=== PATIENT | male | born 1965 | race Caucasian/White ===

== ENCOUNTER 2018-10-06 14:32 | Inpatient (IN) | payer OTHER ==
[~2018-10-06] VITALS: Ht 175.3 cm; Wt 53.2 kg
--- OUTSIDE RECORDS SUMMARY | 2018-10-06 14:35 | XMS REPORT | Clinical Summary ---
Author Author NARCISO [facility] Organization [facility] Address Unknown Phone Unavailable Care Team Providers Care Branch Account Manager Name Role Phone Elvis Roman PCP Allergies Not on File Medications Not on file Active Problems Not on file Social History Date Tobacco Use Types Packs/Day Years Used Never Assessed Sex Assigned at Date Recorded Not on file Industry Job Start Date Occupation Not on file Not on file Not on file Travel End Travel History Travel Start No recent travel history available. Last Filed Vital Signs Not on file Plan of Treatment Not on file Results Not on fileafter 10/05/2017 Insurance Payer Benefit Subscriber ID Type Phone Address Plan / Group [facility] H[facility]/POS CARE POS SELECT CHOICE [place] ([place]) [place] [phone]
--- OUTSIDE RECORDS SUMMARY | 2018-10-06 14:35 | XMS REPORT ---
Author Author [facility] Address Unknown Phone Unavailable Care Team Providers Care Welt Maker Name Role Phone Unavailable Unavailable Problems This patient has no known problems. Allergies, Adverse Reactions, Alerts This patient has no known allergies or adverse reactions. Medications This patient has no known medications. Encounters Start Date/Time End Date/Time Encounter Type Admission Type Attending [facility] Care Department Encounter ID 2018-10-03 17:46:00 Outpatient [facility] [id number] 2018-09-16 11:03:00 2018-09-16 09:14:00 Inpatient E [facility] [id number] 2018-07-09 01:31:00 2018-07-08 22:59:00 Inpatient E [facility] [id number]
[2018-10-06] MEDS ORDERED: SODIUM CHLORIDE 0.9% 1000ML 1,000 ML IV ONE ×2 (15:05→18:45)
[2018-10-06] MEDS ORDERED: SODIUM CHLORIDE 0.9% 1000ML 1,000 ML ONE (15:08)
--- NOTE | 2018-10-06 15:08 | NUR ---
RADIOLOGY AT BEDSIDE FOR CXR AT THIS TIME.
--- NOTE | 2018-10-06 15:31 | Diagnostic Imaging Report ---
EXAMINATION: CHEST SINGLE (PORTABLE) INDICATION: Shortness of breath COMPARISON: None FINDINGS: TUBES and LINES: Tracheostomy tube with tip terminating 2.9 cm above the wilber. LUNGS: The lung volumes are very low. There is airspace opacity in the right lower lung zone silhouetting the right hemidiaphragm and right heart border. Subsegmental atelectasis at the left lung base. PLEURA: Likely small bilateral pleural effusion right greater than left HEART AND MEDIASTINUM: The cardiomediastinal silhouette is difficult to evaluate given low lung volumes. BONES AND SOFT TISSUES: No acute fracture or dislocation. UPPER ABDOMEN: No free air under the diaphragm. Residual oral contrast material in descending colon. IMPRESSION: Low lung volumes. Patchy right lung airspace opacity, likely aspiration or pneumonia in the proper clinical setting. Likely small bilateral pleural effusions. RECOMMENDATIONS: Follow-up PA and lateral chest radiographs in 4 weeks to assess for resolution. Signed by: Kristopher Ag MD on 10/06/2018 3:27 PM
[2018-10-06 15:37] LABS: BILIRUBIN,URINE NEGATIVE (NEGATIVE); CLARITY,URINE SL CLOUDY (CLEAR); COLOR,URINE YELLOW (YELLOW); KETONES,URINE NEGATIVE (NEGATIVE); LEUKOCYTE ESTERASE ,URINE NEGATIVE (NEGATIVE); NITRITE,URINE NEGATIVE (NEGATIVE); PROTEIN,URINE DIPSTICK 2+ (NEGATIVE); URINE UROBILINOGEN 0.2 mg/dL (0.2 - 1)
--- NOTE | 2018-10-06 15:40 | NUR ---
PT BROUGHT TO ROOM; DR. OSORIO AT BEDSIDE UPDATING PT AND WITH CURRENT PLAN OF CARE; DR. OSORIO INFORMED OF LOW B/P 71/54, NO FURTHER ORDERS RECEIVED.
[2018-10-06 15:51] LABS: AMORPHOUS SEDIMENT,URINE MODERATE (FEW); BACTERIA,URINE MANY /HPF; MUCUS,URINE MODERATE (RARE); WBC,URINE (MAN) 0-5 /HPF (0-5)
--- NOTE | 2018-10-06 16:00 | NUR ---
RT AT BEDSIDE FOR ABG DRAW AT THIS TIME.
[2018-10-06 16:02] LABS: LYMPHOCYTES % 3.1 % (18.0-39.1); MEAN CORPUSCULAR HEMOGLOBIN 29.3 pg (28-32); MEAN CORPUSCULAR HGB CONC 28.6 g/dL (31-35); MEAN CORPUSCULAR VOLUME 102.6 fL (81-99); MONOCYTES # (AUTO) 3.6 (0.2-0.8); MONOCYTES % 11.4 % (4.4-11.3); NEUTROPHILS # (AUTO) 26.2 (2.1-6.9); NEUTROPHILS % 84.4 % (38.7-80.0); PLATELET COUNT 352 x10e3/uL (140-360); RED BLOOD COUNT 1.16 x10e6/uL (4.3-5.7); RED CELL DISTRIBUTION WIDTH 15.9 % (11.7-14.4)
[2018-10-06 16:04] LABS: HEMATOCRIT 11.9 % (38.2-49.6); HEMOGLOBIN 3.4 g/dL (14.0-18.0)
--- NOTE | 2018-10-06 16:05 | NUR ---
RECEIVED CALL FROM LAB TO REPORT CRITICAL H/H OF 3.4 AND 11.9; INFORMED DR. OSORIO.
[2018-10-06 16:10] LABS: INR 1.21; PROTHROMBIN TIME 15.9 seconds (11.9-14.5)
--- NOTE | 2018-10-06 16:10 | NUR ---
PT NOTED TO BE BRADYCARDIC, CODE BLUE CALLED AT THIS TIME; DR. OSORIO AT BEDSIDE. RECEIVED VERBAL ORDERS FROM DR. OSORIO AT THIS TIME FOR: ATROPINE 1 MG IVP @1610 EPI 1 MG IVP @1612 O NEGATIVE BLOOD INITIATED @ 500 ML/HR @1616 TO LT AC 20G PIV X-RAY CALLED FOR POST LINE PLACEMENT X-RAY @1618 DOPAMINE @ 5 MCG/KG @ 8.4ML/HR @1619 TO RT AC 22G PIV BLOOD RETURN NOTED ON ALL THREE LINES FROM CENTRAL LINE @1620 SECOND UNIT OF O NEGATIVE BLOOD STARTED ON CENTRAL LINE W/ PRESSURE BAG @1623 FIRST UNIT OF O NEGATIVE BLOOD MOVED TO CENTRAL LINE W/ PRESSURE BAG @1625 DOPAMINE STOPPED @1636 LEVOPHED STARTED AT 5 MCG/MIN @ 9.4 ML/HR @1637
[2018-10-06 16:11] LABS: PARTIAL THROMBOPLASTIN TIME 36.4 seconds (23.8-35.5)
[2018-10-06] MEDS ORDERED: SODIUM CHLORIDE 0.9% 250ML 250 ML IV ONE ×2 (16:15→17:00)
--- NOTE | 2018-10-06 16:16 | NUR ---
CENTRAL LINE WAS PLACED BY DR. OSORIO, CRITICAL BLOOD TRANSFUSION INITIATED; PT VERBALIZED UNDERSTANDING OF INTERVENTIONS AND AGREES WITH CURRENT PLAN OF CARE.
[2018-10-06 16:22] LABS: ALANINE AMINOTRANSFERASE 17 IU/L (0-55); ALBUMIN 2.2 g/dL (3.5-5.0); ALBUMIN/GLOBULIN RATIO 0.8 (0.8-2.0); ALKALINE PHOSPHATASE 100 IU/L (40-150); ANION GAP 17.6 mmol/L (8-16); BLOOD UREA NITROGEN 53 mg/dL (7-26); BUN/CREATININE RATIO 83 (6-25); CARBON DIOXIDE 24 mmol/L (22-29); CHLORIDE 103 mmol/L (98-107); CREATINE KINASE 9 IU/L (30-200); CREATININE, SERUM 0.64 mg/dL (0.72-1.25); EST GLOMERULAR FILTRATION RATE > 60 ML/MIN (60-); GLUCOSE 147 mg/dL (74-118); MAGNESIUM 1.9 MG/DL (1.3-2.1); POTASSIUM 4.6 mmol/L (3.5-5.1); SODIUM 140 mmol/L (136-145)
[2018-10-06] MEDS ORDERED: VANCOMYCIN 1GM/NS 250 ML 250 ML ONE (16:31)
[2018-10-06] MEDS ORDERED: PIPER-TAZ 3.375 GM 50 ML ONE (16:32)
[2018-10-06] MEDS ORDERED: NOREPINEPHRINE 8 MG/D5W 250 ML 250 ML ONE (16:35)
[2018-10-06] MEDS ORDERED: NOREPINEPHRINE INJ 4MG/4ML 8 MG in DEXTROSE 5% 250ML 250 ML IV STA (16:37)
--- NOTE | 2018-10-06 16:40 | NUR ---
RADIOLOGY AT BEDSIDE FOR POST LINE PLACEMENT CXR AT THIS TIME.
--- NOTE | 2018-10-06 17:05 | NUR ---
BEDSIDE VERIFICATION FOR BLOOD TRANSFUSION COMPLETED AT THIS TIME, PT HAS A TOTAL OF 6 UNITS TO GIVE. THIS IS HIS THIRD UNIT, FIRST TWO UNITS GIVEN DURING CODE CRITICAL STATUS PER VERBAL ORDERS WITH DR. OSORIO AT BEDSIDE. SEE FLOWSHEET ON CHART FOR ADMINISTRATION RECORD FOR THIS UNIT.
[2018-10-06 17:09] LABS: ANISOCYTOSIS SLIGHT; BAND NEUTROPHILS % (MANUAL) 2 %; HYPOCHROMASIA MODERATE; LYMPHOCYTES % (MANUAL) 7 % (19-48); METAMYELOCYTES % (MANUAL) 1 % (0-0); MONOCYTES % (MANUAL) 10 % (3.4-9.0); NEUTROPHILS % (MANUAL) 80 % (40-74); PLATELET ESTIMATE ADEQUATE; PLATELET MORPHOLOGY COMMENT FEW LARGE; RBC MORPHOLOGY COMMENT NORMAL; SMUDGE CELLS FEW
[2018-10-06] MEDS ORDERED: VANCOMYCIN 1GM/NS 250 ML 250 ML IV ONE (17:10)
[2018-10-06] MEDS: PIPER-TAZ 3.375 GM 50 ML IV SCH (17:10)
--- NOTE | 2018-10-06 17:28 | NUR ---
PT NOTED TO BE EXPERIENCING BRADYCARDIC EPISODE WITH LOW RESPONSIVENESS, DR. LOYD INFORMED; RECEIVED ORDERS TO START DOPAMINE, SEE eMAR. ADDITIONALLY RECEIVED ORDERS TO GIVE 1 AMP OF BICARB.
--- NOTE | 2018-10-06 17:32 | Diagnostic Imaging Report ---
EXAMINATION: CHEST SINGLE (PORTABLE) INDICATION: Line placement COMPARISON: Chest radiograph of earlier the same day FINDINGS: TUBES and LINES: There has been interval placement of a left subclavian central venous catheter with tip terminating near the level of the superior cavoatrial junction. Tracheostomy tube in place with tip approximately 2.8 cm above the level of the wilber. LUNGS: The lung volumes are low. There is unchanged airspace opacity in the right lower lung zone. PLEURA: Likely small bilateral pleural effusions right greater than left. HEART AND MEDIASTINUM: The cardiomediastinal silhouette is mildly enlarged. BONES AND SOFT TISSUES: No acute fracture or dislocation. UPPER ABDOMEN: No free air under the diaphragm. IMPRESSION: Interval placement of left subclavian central venous catheter with tip terminating near the superior cavoatrial junction. Unchanged right lower lung opacity, compatible with aspiration or pneumonia. RECOMMENDATIONS: Follow-up PA and lateral chest radiographs in 4 weeks to assess for resolution. Signed by: Kristopher Ag MD on 10/06/2018 5:29 PM
[2018-10-06] MEDS ORDERED: PIPER-TAZ 3.375 GM 50 ML IV SCH (18:00)
--- OUTSIDE RECORDS SUMMARY | 2018-10-06 18:07 | XMS REPORT | Clinical Summary ---
Author Author NARCISO [facility] Organization [facility] Address Unknown Phone Unavailable Care Team Providers Care Modeler Name Role Phone Elvis Roman PCP Allergies [...] ID Type Phone Address Plan / Group [facility] H[facility]/POS CARE POS [employer] CHO[employer] [place] ([place] [phone]
[2018-10-06] MEDS ORDERED: PROPOFOL IV EMULSION 10MG/ML 100 ML IV SCH (18:30)
--- NOTE | 2018-10-06 18:35 | NUR ---
DR. JI AT BEDSIDE FOR BRONCHOSCOPY; RT AT BEDSIDE; GIVING VERBAL ORDERS FOR THE FOLLWING: LITER BOLUS NS WIDE OPEN @1840 LEVOPHED TITRATED TO 15 MCG/MIN 28.1 ML/HR @184 5 CC/50 MG OF PROPOFOL IVP PRIOR TO PROCEDURE GIVEN @184 PROCEDURE START VIA TRACH @184 LEVOPHED TITRATED TO 20 MCG/MIN 37.5 ML/HR PROCEDURE END TIME @ 185
[2018-10-06] MEDS ORDERED: LIDOCAINE HCL 2% 30 ML TUBE ONE (18:36)
[2018-10-06] MEDS ORDERED: LIDOCAINE HCL 4% 50 ML BTL ONE (18:36)
[2018-10-06] MEDS: IPRATROPIUM BROMIDE 0.02% 2.5 ML NEB NEB SCH (19:00)
[2018-10-06] MEDS ORDERED: VASOPRESSIN 100 UNIT in DEXTROSE 5% 100ML 100 ML IV SCH (19:00)
[2018-10-06] MEDS: ALBUTEROL SULF 0.083% NEB SOLN 3 ML NEB NEB SCH ×2 (19:00→23:00)
--- NOTE | 2018-10-06 19:09 | NUR ---
RADIOLOGY AT BEDSIDE FOR POST PROCEDURE X-RAY AT THIS TIME.
--- NOTE | 2018-10-06 19:15 | NUR ---
FOURTH UNIT OF BLOOD INITIATED AT THIS TIME, BEDSIDE VERFICATION COMPLETED, SEE FLOWSHEET ON CHART.
--- NOTE | 2018-10-06 19:20 | NUR ---
DR. MAYERS AT BEDSIDE FOR PT EVAL AT THIS TIME.
[2018-10-06] MEDS: SODIUM CHLORIDE 0.9% 1000ML 1,000 ML IV SCH (19:22)
--- NOTE | 2018-10-06 19:25 | Operative Report ---
DATE OF PROCEDURE: 10/06/2018 SURGEON: Humaira Mantilla MD PREPROCEDURE DIAGNOSIS: Abnormal chest x-ray. POSTPROCEDURE DIAGNOSIS: Mucous plugging in the right lower lobe and purulent secretions. PROCEDURE PERFORMED: Bronchoscopy with BAL. PROCEDURE DETAIL: The bronchoscope was advanced through the tracheostomy. Evangelina was identified. Both lung was examined to the segmental level. The left lung has two small nodules. I was unable to do the biopsy because of the patient's hypoxia. Right lung has no endobronchial lesion. Mucus plug was suctioned from the right lower lobe. Complications none. Postprocedure chest x-ray is pending. MD PIOTR Moon/MODL /[id number]
--- NOTE | 2018-10-06 19:41 | Diagnostic Imaging Report ---
EXAMINATION: CHEST SINGLE (PORTABLE) INDICATION: ^post bronchsocopy COMPARISON: Chest x-ray 10/06/2018. FINDINGS: AP view TUBES and LINES: Tracheostomy tube in place. Left subclavian line with tip at low SVC. LUNGS: Lungs are well inflated. Right lung opacification with air bronchograms. Increasing and show opacities in the left lung. PLEURA: Moderate to large right pleural effusion with opacification of the right hemithorax. Small left pleural effusion with mildly indistinct left hemidiaphragm. HEART AND MEDIASTINUM: The cardiomediastinal silhouette is unremarkable. BONES AND SOFT TISSUES: No acute osseous lesion. Soft tissues are unremarkable. UPPER ABDOMEN: No free air under the diaphragm. Positive oral contrast within the splenic flexure of the colon. IMPRESSION: 1. Enlarging moderate to large right pleural effusion with likely small left pleural effusion. 2. Increasing diffuse consolidation/opacification of the right hemithorax with air bronchograms. Correlate for possible mucus plugging. Alternatively this could represent bronchoscopy fluid. Recommend close follow-up. 3. Slight increase in interstitial opacities in the left lung, possibly related to hypoinflation. Signed by: Dr. Darren Kraus M.D. on 10/06/2018 7:38 PM
[2018-10-06] MEDS ORDERED: NIFEDIPINE 10 MG CAP PO STA (19:53)
--- NOTE | 2018-10-06 19:57 | NUR ---
MELANIE SCHROEDER NOTIFIED OF CRITICAL LAB VALUE. LACTIC ACID 63.6.
[2018-10-06 20:00] VITALS: BP 106/69
[2018-10-06 20:09] LABS: FERRITIN 201.81 ng/mL (21.81-274.66)
--- NOTE | 2018-10-06 20:14 | Consultation ---
DATE OF CONSULTATION: 10/06/2018 Pulmonary Critical Care Consultation REASON FOR CONSULT: Pneumonia, ICU management, tracheostomy. HISTORY OF PRESENT ILLNESS: Mr. Sloan is a 52-year-old male, I was called for a stat consult to evaluate the patient for pneumonia and shortness of breath. The patient is a resident of [facility], has muscular dystrophy, chronic trach, has vent in home, dysphagia. 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 He came in because he was tachycardic. His hemoglobin was 3 in the emergency room. He had a chest x-ray done, which showed dense consolidation in the right lower lung and possible mucus plug as well. REVIEW OF SYSTEMS: Unable to elicit much. The patient is on trach care on mechanical ventilator. He is denying any chest pain, nausea, or vomiting. He has shortness of breath. He denies any abdominal pain. PAST MEDICAL HISTORY: Multiple sclerosis, muscular dystrophy is a question, chronic pain, anxiety, and dysphagia. FAMILY AND SOCIAL HISTORY: He does not smoke. Does not drink. PHYSICAL EXAMINATION: GENERAL: He is living in [facility]. VITAL SIGNS: Temperature 99.8, pulse of 142, blood pressure 80/53. HEENT: Head is atraumatic, normocephalic. The patient has some bleeding on the back side of the head. Has a tracheostomy, Shiley 6 with an inner cannula. CHEST: Crackles bilaterally. HEART: S1, S2 audible. ABDOMEN: Soft. EXTREMITIES: No pedal edema. NEUROLOGIC: Awake and alert, but cannot move his arms and legs. LABORATORY DATA: White count of 31,000, hemoglobin 3.4, platelets 352. Chemistry is within normal limits. Chest x-ray, possibility of pneumonia. ASSESSMENT/PLAN: Mr. Sloan is a 52-year-old male, has advanced multiple sclerosis versus muscular dystrophy is a question too. I am unsure of other diagnosis, however, the patient has chronic respiratory failure, has vent dependence, likely has pneumonia and acute blood loss anemia. Current problem, 1. Pneumonia aspiration likely bronchoscopy was performed. Mucus plug was suctioned from the right lower lobe. Continue the patient on IV antibiotics. The patient has been started on Zosyn and vancomycin nebulizer treatment. 2. Hemorrhagic shock versus septic shock or possibly a combination. Continue the patient on Levophed and IV fluids. Start blood transfusion, 2 units have been transfused, another 3 is cross-matched and will be transfused soon. 3. Multiple sclerosis versus muscular dystrophy. Recommend neurologic evaluation. Critical care time spent 50 minutes. MD PIOTR Moon/GEO /[id number]
--- NOTE | 2018-10-06 20:14 | History and Physical ---
HISTORY OF PRESENT ILLNESS: The patient essentially is a 52-year-old male, who had a past medical history positive for multiple sclerosis. He is chronically on the ventilator. He is from [facility] and the patient essentially came because of hypotension. He was found to have a very low blood count with a hemoglobin of 3.5. Apparently, he has been having some black stool for some time. He was found to have aspiration pneumonia. He was started on IV antibiotic and had a bronchoscopy done. He is going to get 6 units of blood transfusion with a consult with Dr. Anton Davis for Gastroenterology to find out the source of the anemia. Dr. Mantilla for Pulmonary because the patient is on the ventilator and Dr. James because of tachycardia. REVIEW OF SYSTEMS: The patient cannot give me too much information because he is on the ventilator. PAST MEDICAL HISTORY: Positive for multiple sclerosis, muscular dystrophy, chronic respiratory failure. ALLERGIES: HE IS ALLERGIC TO TYLENOL, HYDROCODONE IN THE PAST, LORAZEPAM IN THE PAST. SOCIAL HISTORY: [facility]. We do not know he smokes or drink. PHYSICAL EXAMINATION: HEART: Showed regular rhythm. Normal S1 and S2 sound. LUNGS: Clear bilaterally. ABDOMEN: Soft. He had a feeding tube in place. He had a tracheostomy. EXTREMITIES: Atrophy in upper and lower extremities. LABORATORY DATA: BMP; sodium 140, potassium 4.6, chloride 103, CO2 24, BUN 53, creatinine is 0.64, glucose 147. CBC; white blood count is elevated at 31,100, hemoglobin 3.4, hematocrit 11.9, platelet count 352,000. PT 15.9, INR 1.21, PTT 36.4. AST 21, ALT 17, total bilirubin 0.4, alkaline phosphatase 100. IMPRESSION: 1. Acute anemia. 2. Acute aspiration pneumonia. 3. Chronic respiratory failure. 4. Multiple sclerosis. 5. Supraventricular tachycardia, most likely secondary to anemia and sepsis. 6. Hypotension. 7. Acute renal failure. 8. Sepsis. PLAN OF TREATMENT: Continue ventilator support. He is going to get 6 units of blood transfusion. We are going to get stool guaiac, iron, TIBC, ferritin, vitamin B12, folic acid level. Consult Gastroenterology, Dr. Anton Davis and Dr. Mantilla for Pulmonary and Critical Care, Dr. James for Cardiology because of tachycardia. Continue with albuterol and Atrovent q.6 hours. Continue Zosyn q.6 hours. Continue vancomycin 1 g IV twice a day. Continue with IV fluids 110 normal saline at 125 mL an hour. We are going to repeat a CBC and BMP tomorrow. Dopamine and vasopressin as needed. The patient is critically, he is going to go to Intensive Care Unit. I discussed the case with Dr. Mantilla. TIME SPENT: 45 minutes. MD KAREN Purdy/GEO /[id number]
[2018-10-06] MEDS ORDERED: SODIUM CHLORIDE 0.9% 250ML 250 ML ONE (21:36)
[2018-10-06 22:00] VITALS: BP 100/74
[2018-10-06] MEDS ORDERED: METHYLPREDNISOLONE SOD SUCC 125 MG/2ML VIAL IV SCH (22:00)
[2018-10-06 22:30] VITALS: BP 88/65
[2018-10-06] MEDS: HYDROCORTISONE SOD SUCCINATE 100 MG VIAL IV SCH (22:43)
[2018-10-06] MEDS: PANTOPRAZOL 40MG/SOD CHL 0.9% 50 ML IV SCH (22:43)
[2018-10-06 23:00] VITALS: BP 93/73
[2018-10-06] MEDS ORDERED: SEROQUEL25 MG GT (23:21)
[2018-10-06] MEDS ORDERED: MIDODRINE HCL2.5 MG GT (23:21)
[2018-10-06] MEDS ORDERED: ACETAMINOPHEN325 M1 PO (23:21)
[2018-10-06] MEDS ORDERED: MONTELUKAST SOD10 MG GT (23:21)
[2018-10-06] MEDS ORDERED: METOPROLOL TART25 MG GT (23:21)
[2018-10-06] MEDS ORDERED: SENNA LAX8.6 MG GT (23:21)
[2018-10-06] MEDS ORDERED: ADVAIR 100-501 EACH IH (23:21)
[2018-10-06] MEDS ORDERED: GUAIFENESI100 MG/5 M GT (23:21)
[2018-10-06] MEDS ORDERED: ASPIRIN CHEW81 MG GT (23:45)
[2018-10-06] MEDS ORDERED: FAMOTIDINE20 MG GT (23:45)
[2018-10-06] MEDS ORDERED: ALBUTEROL0.63 MG/3 NEB ×2 (23:45)
[2018-10-06] MEDS ORDERED: DOCU LIQUI50 MG/5 ML GT (23:45)
[2018-10-06] MEDS ORDERED: BUSPIRONE HCL5 MG GT (23:45)
[2018-10-06 23:59] VITALS: BP 106/69
[2018-10-07] VITALS (26 sets, daily range): BP systolic 10–117; BP diastolic 26–89
[2018-10-07] MEDS ORDERED: HEMOCYTE PLUS1 EACH GT (00:20)
[2018-10-07] MEDS: PANTOPRAZOL 40MG/SOD CHL 0.9% 50 ML IV SCH ×5 (01:40→20:58)
[2018-10-07] MEDS: PIPER-TAZ 3.375 GM 50 ML IV SCH ×3 (01:42→12:00)
[2018-10-07] MEDS: IPRATROPIUM BROMIDE 0.02% 2.5 ML NEB NEB SCH ×5 (02:20→22:50)
[2018-10-07] MEDS: ALBUTEROL SULF 0.083% NEB SOLN 3 ML NEB NEB SCH ×3 (03:00→11:00)
[2018-10-07] MEDS: BUSPIRONE HCL 5 MG TAB PO SCH ×4 (03:00→21:00)
[2018-10-07] MEDS ORDERED: QUETIAPINE FUMARATE 25 MG TAB GT PRN (04:00)
--- NOTE | 2018-10-07 04:34 | NUR ---
Spoke with Dr. Sima Davis regarding pt intake, stated it is ok to use PEG tube for meds at this time. Will start tube feeds 10/07 @30 ml/hr with 200 ml flushes Q8 hrs. Goal of 85 ml/hr with 200 ml flushes Q8 hrs.
[2018-10-07] MEDS ORDERED: NOREPINEPHRINE 8 MG/D5W 250 ML 250 ML ONE ×3 (05:59→15:30)
[2018-10-07 06:23] LABS: BASOPHILS # (AUTO) 0.2 (0.0-0.1); BASOPHILS % 0.4 % (0.0-1.0); EOSINOPHILS # (AUTO) 0.1 (0.0-0.4); EOSINOPHILS % 0.2 % (0.0-6.0); HEMATOCRIT 40.8 % (38.2-49.6); HEMOGLOBIN 13.1 g/dL (14.0-18.0); LYMPHOCYTES # (AUTO) 0.9 (1.0-3.2); LYMPHOCYTES % 1.9 % (18.0-39.1); MEAN CORPUSCULAR HEMOGLOBIN 29.9 pg (28-32); MEAN CORPUSCULAR HGB CONC 32.1 g/dL (31-35); MEAN CORPUSCULAR VOLUME 93.2 fL (81-99); MONOCYTES # (AUTO) 3.3 (0.2-0.8); MONOCYTES % 7.2 % (4.4-11.3); NEUTROPHILS # (AUTO) 40.4 (2.1-6.9); NEUTROPHILS % 88.1 % (38.7-80.0); PLATELET COUNT 397 x10e3/uL (140-360); RED BLOOD COUNT 4.38 x10e6/uL (4.3-5.7); RED CELL DISTRIBUTION WIDTH 15.6 % (11.7-14.4)
[2018-10-07 06:38] LABS: BLOOD UREA NITROGEN 52 mg/dL (7-26); BUN/CREATININE RATIO 67 (6-25); CALCIUM 7.6 mg/dL (8.4-10.2); CARBON DIOXIDE 18 mmol/L (22-29); CHLORIDE 111 mmol/L (98-107); CREATININE, SERUM 0.78 mg/dL (0.72-1.25); EST GLOMERULAR FILTRATION RATE > 60 ML/MIN (60-); GLUCOSE 149 mg/dL (74-118); SODIUM 142 mmol/L (136-145)
[2018-10-07] MEDS ORDERED: SODIUM CHLORIDE 0.9% 1000ML 1,000 ML IV SCH (06:45)
[2018-10-07 06:51] LABS: ANION GAP 19.4 mmol/L (8-16)
[2018-10-07 06:54] LABS: POTASSIUM 6.4 mmol/L (3.5-5.1)
[2018-10-07] MEDS: VANCOMYCIN 1GM/NS 250 ML 250 ML IV SCH ×2 (07:17→17:19)
[2018-10-07] MEDS: HYDROCORTISONE SOD SUCCINATE 100 MG VIAL IV SCH ×2 (07:17→15:47)
[2018-10-07] MEDS: SODIUM CHLORIDE 0.9% 1000ML 1,000 ML IV SCH ×2 (07:17→09:52)
--- NOTE | 2018-10-07 07:19 | NUR ---
pt appears to be in respiratory distress, lethargic, pale, blue lips, diaphoretic, unable to get accurate O2 reading @ 0530. Last unit of blood has just finished. supervisor brake repair & primary RT has attempted ABG several times and been unsuccessful. supervisor brake repair directed to draw AM labs although it was too soon after last blood transfusion. RT was able to get O2 reading and pt appears more awake, color has returned to face and lips. Report has been given to Ulises, as well as the critical K+. Recommended labs be redrawn for more accuracy.
--- NOTE | 2018-10-07 07:39 | Diagnostic Imaging Report ---
EXAMINATION: CHEST SINGLE (PORTABLE) INDICATION: ^FOLLOW UP ^[id number] ^[id number] ^Y COMPARISON: 10/06/2018 FINDINGS: AP view TUBES and LINES: Stable endotracheal tube and left subclavian central line LUNGS: Low lung volumes. Bilateral airspace opacities are again seen. Improved aeration of the right lung. PLEURA: No pneumothorax. HEART AND MEDIASTINUM: The cardiac silhouette is obscured. Thickening of the right paratracheal stripe. BONES AND SOFT TISSUES: No acute osseous lesion. Soft tissues are unremarkable. UPPER ABDOMEN: No free air under the diaphragm. IMPRESSION: Again seen bilateral airspace opacities, representing moderate to severe edema and/or pneumonia. Decreased right lung opacification with improved aeration, representing decreased edema/effusion or pneumonia. Signed by: Dr. Julio C Zuleta MD on 10/07/2018 7:36 AM
[2018-10-07 08:13] LABS: BAND NEUTROPHILS % (MANUAL) 1 %; LYMPHOCYTES % (MANUAL) 3 % (19-48); MONOCYTES % (MANUAL) 10 % (3.4-9.0); NEUTROPHILS % (MANUAL) 86 % (40-74); NUCLEATED RED BLOOD CELLS 2; PLATELET ESTIMATE ADEQUATE
[2018-10-07 08:14] LABS: PLATELET MORPHOLOGY COMMENT NORMAL; RBC MORPHOLOGY COMMENT NORMAL
[2018-10-07] MEDS ORDERED: VANCOMYCIN HCL 1GM/NS 250 ML BAG IV SCH (09:00)
[2018-10-07 09:17] LABS: BASOPHILS # (AUTO) 0.2 (0.0-0.1); BASOPHILS % 0.3 % (0.0-1.0); EOSINOPHILS # (AUTO) 0.1 (0.0-0.4); EOSINOPHILS % 0.2 % (0.0-6.0); HEMATOCRIT 39.3 % (38.2-49.6); LYMPHOCYTES # (AUTO) 0.7 (1.0-3.2); LYMPHOCYTES % 1.4 % (18.0-39.1); MEAN CORPUSCULAR HEMOGLOBIN 30.7 pg (28-32); MEAN CORPUSCULAR HGB CONC 33.1 g/dL (31-35); MEAN CORPUSCULAR VOLUME 92.7 fL (81-99); MONOCYTES % 6.3 % (4.4-11.3); NEUTROPHILS # (AUTO) 42.6 (2.1-6.9); NEUTROPHILS % 89.2 % (38.7-80.0); PLATELET COUNT 381 x10e3/uL (140-360); RED BLOOD COUNT 4.24 x10e6/uL (4.3-5.7); RED CELL DISTRIBUTION WIDTH 15.8 % (11.7-14.4)
[2018-10-07 09:34] LABS: ANION GAP 18.4 mmol/L (8-16); BLOOD UREA NITROGEN 54 mg/dL (7-26); BUN/CREATININE RATIO 68 (6-25); CALCIUM 7.3 mg/dL (8.4-10.2); CARBON DIOXIDE 18 mmol/L (22-29); CHLORIDE 111 mmol/L (98-107); EST GLOMERULAR FILTRATION RATE > 60 ML/MIN (60-); GLUCOSE 169 mg/dL (74-118); POTASSIUM 5.4 mmol/L (3.5-5.1); SODIUM 142 mmol/L (136-145)
[2018-10-07 09:54] LABS: CREATINE KINASE MB 2.2 ng/mL (0-5.0)
[2018-10-07] MEDS: NOREPINEPHRINE 8 MG/D5W 250 ML 250 ML IV PRN ×2 (10:28→15:30)
[2018-10-07] MEDS ORDERED: FENTANYL CITRATE/PF 100MCG/2 ML INJ IV ONE (10:30)
[2018-10-07 10:36] LABS: BAND NEUTROPHILS % (MANUAL) 8 %; LYMPHOCYTES % (MANUAL) 2 % (19-48); MONOCYTES % (MANUAL) 1 % (3.4-9.0); NEUTROPHILS % (MANUAL) 89 % (40-74); RBC MORPHOLOGY COMMENT NORMAL
[2018-10-07 10:37] LABS: PLATELET ESTIMATE ADEQUATE; PLATELET MORPHOLOGY COMMENT FEW EDTA CLUMPING
[2018-10-07] MEDS ORDERED: DOBUtamine HCL 500MG/D5W 250ML 250 ML IV ONE (10:58)
[2018-10-07 11:57] LABS: ABG HCO3 14 mmol/L (23-28); ABG PCO2 41 mmHg (41-51); ABG PH 7.14 (7.31-7.41); ABG PO2 126 mmHg (80-105)
[2018-10-07] MEDS: PHENYLEPHRINE 10MG/ML VIAL 40 MG in DEXTROSE 5% 250ML 246 ML IV PRN (12:00)
[2018-10-07] MEDS ORDERED: SODIUM BICARBONATE 8.4% SYRING 100 ML ONE (12:12)
[2018-10-07] MEDS ORDERED: LEVALBUTEROL HCL SOLN NEBU 0.63 MG/3 ML NEB INH PRN (12:15)
[2018-10-07] MEDS ORDERED: FENTANYL CITRATE INJ 2,000 MCG in SODIUM CHLORIDE 0.9% 250ML 210 ML IV PRN (12:15)
--- NOTE | 2018-10-07 12:26 | Consultation ---
DATE OF CONSULTATION: 10/07/2018 Cardiology Consultation CONSULTING PHYSICIAN: Dr. Davis. REASON FOR CONSULTATION: Tachycardia. HISTORY OF PRESENT ILLNESS: Mr. Sloan is a 52-year-old male with a pertinent past medical history of multiple sclerosis and also chronic ventilator requirement, who was residing in the [facility] and was brought in through the ER due to hypotension. On admission, he was found to be severely anemic and also suffering from pneumonia. We were consulted for management of sinus tachycardia of this patient. At this present time, he denies any chest pain, however, he does endorse worsening shortness of breath and also palpitations and overall generalized weakness. He denies any fever, chills, abdominal discomfort, or dysuria. PAST MEDICAL HISTORY: Multiple sclerosis, muscular dystrophy, chronic respiratory failure. PAST SURGICAL HISTORY: Permanent trach. REVIEW OF SYSTEMS: Negative except as mentioned above. SOCIAL HISTORY: He lives in a [facility], does not drink or smoke. PHYSICAL EXAMINATION: VITAL SIGNS: Temperature 98.2, pulse 106, respiratory rate 23, blood pressure 117/80, oxygen saturation 92% on mechanical ventilator. GENERAL: Alert and oriented x3, resting comfortably in bed. Family at the bedside. NECK: Supple. Trach in place. LUNGS: Diminished breath sounds throughout with scattered wheezes. No crackles noted. CARDIOVASCULAR: Regular rate and rhythm. Tachycardic. No murmurs, no gallops. ABDOMEN: Soft, nontender. Hypoactive bowel sounds. EXTREMITIES: Lower extremities, cool to the touch. Diminished pedal pulses. CARDIOVASCULAR MEDICATIONS: Dopamine IV drip, norepinephrine IV titrate, vasopressin IV titrate. LABORATORY DATA: WBC 45.89, hemoglobin 13.1, hematocrit 40.8, platelets 395. Sodium 142, potassium 6.4, BUN 52, creatinine 0.75, glucose 149, calcium 7.6. CK-MB 2, troponin 0.198. Chest x-ray from this morning with bilateral airspace opacities, aswdexuw-qo-kzuivv edema, decreased right lung opacity with improved aeration. Telemetry, sinus tachycardia. IMPRESSION: 1. Sinus tachycardia. 2. Acute anemia requiring transfusion. 3. Chronic respiratory failure. 4. Multiple sclerosis. 5. Hypotension requiring vasopressors. 6. Electrolyte imbalance and hyperkalemia. 7. Sepsis. RECOMMENDATION: Sinus tachycardia likely secondary to anemia and also sepsis. At this time, we are unable to adjust his medication given his requirement for vasopressors. Continue to monitor on telemetry for now. Obtain echocardiogram. Continue the above-listed cardiac medication. Continue to treat for the above conditions and antimicrobial therapy per Infectious Disease. We will continue to follow this patient very closely and we thank you for this consul. Dictated by Arlette Kaur NP MD CHRIS BoyceV/GEO /[id number]
[2018-10-07] MEDS ORDERED: SODIUM BICARBONATE 8.4% 150 ML in DEXTROSE 5% 1,000 ML IV ONE ×2 (12:30→21:15)
--- NOTE | 2018-10-07 12:56 | Operative Report ---
DATE OF PROCEDURE: 10/06/2018 SURGEON: Humaira Mantilla MD PREPROCEDURE DIAGNOSES: Hypotension and septic shock, hemorrhagic shock. POSTPROCEDURE DIAGNOSES: Hypotension and septic shock, hemorrhagic shock. PROCEDURE PERFORMED: Arterial line insertion. STUDENT ACCOUNTS COORDINATOR: Dr. Cristiane Santoro. PROCEDURE IN DETAIL: Real-time ultrasound was used to locate the right femoral artery. Micropuncture needle was used to enter the right femoral artery, this was done with Dr. Cristiane Satnoro's assistance. This was followed by insertion of femoral guidewire. A femoral arterial line was inserted with Seldinger technique. Good pulsatile blood flow was seen from the A-line. A-line placement was confirmed with the waveform of femoral arterial line blood pressure. The patient's blood pressure is around 120/62 in the arterial line and blood pressure cuff is not picking up the blood pressure. COMPLICATIONS: None. ESTIMATED BLOOD LOSS: 4-5 mL. MD PIOTR Moon/GEO /[id number]
[2018-10-07] MEDS ORDERED: DOBUtamine HCL 500MG/D5W 250ML 250 ML IV PRN (14:15)
--- NOTE | 2018-10-07 14:40 | NUR ---
left a voicemail for dr martinez for new consult
[2018-10-07] MEDS: LEVALBUTEROL HCL SOLN NEBU 0.63 MG/3 ML NEB INH SCH ×3 (15:00→22:50)
[2018-10-07] MEDS ORDERED: SODIUM BICARBONATE 8.4% 50 ML VIAL IV ONE (15:00)
[2018-10-07] MEDS ORDERED: EPINEPHRINE HCL SYRINGE ONE (16:11)
[2018-10-07] MEDS ORDERED: SODIUM BICARBONATE 8.4% INJ 50 ML SYR ONE (16:11)
[2018-10-07] MEDS ORDERED: ATROPINE SULFATE 0.1 MG/ML 10ML SYR ONE (16:11)
[2018-10-07] MEDS ORDERED: SODIUM CHLORIDE FLUSH 10 ML SYR ONE (16:11)
--- NOTE | 2018-10-07 16:22 | Progress Note ---
DATE: 10/07/2018 Internal Medicine Progress Note SUBJECTIVE: He is doing and looking better today compared to yesterday. He is in the intensive care unit right now. He received 6 units of blood transfusion. His hemoglobin right now is 13.0. His platelet count is elevated. He was started on IV fluids with sodium bicarbonate because of the metabolic acidosis. He is still on the ventilator which is chronically connected to the ventilator. He looks better today. PHYSICAL EXAMINATION: VITAL SIGNS: Blood pressure 117/88, temperature 98.2, heart rate 132 per minute, respiratory rate 22 per minute, oxygen saturation is 99%. HEART: Showed regular rhythm. Normal S1, S2 sound. LUNGS: Clear bilaterally. ABDOMEN: Soft, nontender. No distention. No visceromegaly. He has a PEG tube in place. EXTREMITIES: Show no evidence of cyanosis, edema, or trauma. LABORATORY DATA: BMP; sodium 142, potassium 5.4, chloride 111, CO2 18, BUN 54, creatinine 0.80, glucose 169. On CBC, white blood count 14,700, hemoglobin 13.0, hematocrit 39.3, platelet count 681,000. PT 15.9, INR 1.21, PTT 36.4. AST 21, ALT 17, total bilirubin 0.4, alkaline phosphatase 100. FINAL IMPRESSION: 1. Acute anemia. 2. Aspiration pneumonia. 3. Septic shock. 4. Chronic respiratory failure. 5. Acute renal insufficiency. 6. Tachycardia due to the sepsis and anemia combined. PLAN OF TREATMENT: Continue ventilator support. Continue albuterol and Atrovent q.4-6 hours. Continue dopamine drip, vasopressin drip, Levophed drip, Seroquel 25 mg at bedtime, Protonix 40 mg, Protonix drip, meropenem 500 g IV twice a day, sodium bicarbonate drip at 100 mL an hour, Seroquel 12.5 mg at bedtime, vancomycin 1 g IV twice a day, hydrocortisone 100 mg q.8 hours. We are going to consult Dr. Anton Davis for Gastroenterology. The patient most likely will need an upper endoscopy due to the fact that he was having melanotic stools apparently for few days at the group home. We are going to continue following the UA, urine culture and blood culture, Dr. Llanes, quiller machine fixer on the case. Dr. Mantilla is Pulmonology and critical Care, Dr. Anton Davis for Gastroenterology. We are going to consult Dr. Carmichael for Infectious Diseases. Also due to the hyperkalemia, we are going to give Kayexalate 30 g via PEG tube one time. We are going to recheck the potassium level today. The patient was in a better condition than was yesterday, at least the hemoglobin is back to normal. We are going to continue current medication regimen. The case has been discussed with the family at the bedside. MD KAREN Purdy/GEO /[id number]
[2018-10-07] MEDS ORDERED: MEROPENEM 500MG/ NS 50ML 50 ML IV SCH (17:00)
[2018-10-07] MEDS ORDERED: VASOPRESSIN 100 UNIT in DEXTROSE 5% 100ML 100 ML IV PRN (17:30)
--- NOTE | 2018-10-07 18:27 | NUR ---
Nutrition Intervention Note RD Recommendation(s) for Physician: The patient meets criteria for MODERATE protein-calorie malnutrition. 1.When hemodynamically stable, recommend to initiate continuous tube feed of Vital AF 1.2 Sam @ 10mL/hr and advance as tolerated to goal rate of 45ml/hr (1296kcal, 81g protein, 876mL of H20) 2.Water flushes 50ml q 4hrs, additional per MD 3.Monitor labs, gastric residuals, s/s of intolerance and weight daily Plan of Care: RD following, monitoring for tolerance and adequacy, TF recommendation Nutrition reason for involvement: Nutrition Risk Trigger RD Assessment: (10/07) 52 y/o M with medical history of multiple sclerosis on ventilator. Pt came from the [facility] for hypotension. Pt found to have hemoglobin of 3.5 and aspiration pneumonia. Visited patient in the room, family at bed side. Patient has PEG tube in place. Report mostly receiving nutrition by PEG feedings, with minimal oral intake. Pt and family unable to recall pt specific nutrition prescription, RN noted will hold PEG feeding due to current GI bleed. Communicated with [facility] for previous nutrition prescription, they stated patient previously on Isosource HN running @85mL/hr for 22hr with 10mL water flushes every hour (providing ~2244 kcal and 101g of protein). Per pt and family reported significant weight changes, report pt was weighing 120lbs ~ 6 months ago with UBW of 140lbs. Patient on multiple vasopressor medications, will communicate nutrition recommendation to start once pt is hemodynamically stable to feed. Principal Problems/Diagnoses: Sepsis, Severe Anemia, GI Bleed and aspiration pneumonia PMH: Positive for multiple sclerosis, muscular dystrophy, chronic respiratory failure GI: PEG tube in place, GI bleed Skin: no pressure wound noted Labs: (10/07) Sodium 142, CO2 18, Lactic Acid 54.7, K 5.4, BUN 54, Calcium 7.3 Meds: (10/07) Norepinepherine, Dopamine, Fentanyl , Vancomycin, Sodium Bicarb Ht: 71in Wt: 117 lbs BMI: 16.3 kg/m2 IBW: 172 lbs +/- 10% Malnutrition Evaluation (10/07) The patient meets criteria for MODERATE protein-calorie malnutrition. Energy intake: Unable to evaluate Weight loss: >20% in 1 year (Chronic) Fat loss: Severe, pronounced hollow dark circles Muscle loss: Severe, temporal hollowing , clavicle protrusion Supporting Evidence: Fluid accumulation: {unable to evaluate} Functional Status: {unable to evaluate} Nutrition Prescription (Diet Order): NPO Estimated Nutritional Needs: 9127-1509 calories/day ( 20-25 kcal/kg CBW) 80-106 g protein/day (1.5 -2.0g pro/kg CBW) Diet Adequacy: Not meeting calorie needs, not meeting protein needs Diet Education Needs Assessment: Diet education not appropriate . Nutrition Care Level: HIGH Nutrition Diagnosis: Inadequate oral intake related to current medical status (ventilated) and on multiple vasopressors as evidenced by PEG dependent and requiring EN as main source of nutrition. Moderate malnutrition related to inadequate energy intake as evidenced by >20% weight loss in 1 year (Chronic) and severe muscle/ fat loss. Goal: Patient will meet 75-100% of estimated needs by follow up Progress: Not progressing Interventions: Composition, Rate, Route, IVF, Prescription medications Monitoring/Evaluation: Total energy intake, Total protein intake, Formula/Solution, IVF, Prescription medication, Weight change Signed: Lorie Noble MS, RD, LD
[2018-10-07] MEDS ORDERED: SOD POLYSTYRENE SULFONATE SUSP 15 GM/60 ML BTL PO ONE (19:30)
--- NOTE | 2018-10-07 20:15 | NUR ---
present and assessing the pt. He is also calling and discussing his assessment findings with . stated not to take patient for CT scans at this time due to current pt condition.
[2018-10-07 20:40] LABS: ABG PCO2 54 mmHg (41-51); ABG PH 7.18 (7.31-7.41); ABG PO2 174 mmHg (80-105)
[2018-10-07 20:41] LABS: ABG HCO3 20 mmol/L (23-28)
[2018-10-07 20:46] LABS: BASOPHILS # (AUTO) 0.1 (0.0-0.1); BASOPHILS % 0.2 % (0.0-1.0); EOSINOPHILS # (AUTO) 0.1 (0.0-0.4); EOSINOPHILS % 0.1 % (0.0-6.0); HEMATOCRIT 40.8 % (38.2-49.6); HEMOGLOBIN 13.6 g/dL (14.0-18.0); LYMPHOCYTES # (AUTO) 1.2 (1.0-3.2); LYMPHOCYTES % 2.3 % (18.0-39.1); MEAN CORPUSCULAR HEMOGLOBIN 30.6 pg (28-32); MEAN CORPUSCULAR HGB CONC 33.3 g/dL (31-35); MEAN CORPUSCULAR VOLUME 91.7 fL (81-99); MONOCYTES # (AUTO) 1.8 (0.2-0.8); MONOCYTES % 3.6 % (4.4-11.3); NEUTROPHILS % 90.4 % (38.7-80.0); PLATELET COUNT 402 x10e3/uL (140-360); RED BLOOD COUNT 4.45 x10e6/uL (4.3-5.7); RED CELL DISTRIBUTION WIDTH 15.9 % (11.7-14.4)
[2018-10-07] MEDS ORDERED: QUETIAPINE FUMARATE 25 MG TAB GT SCH (21:00)
[2018-10-07 21:02] LABS: ANION GAP 21.6 mmol/L (8-16); BLOOD UREA NITROGEN 60 mg/dL (7-26); BUN/CREATININE RATIO 48 (6-25); CALCIUM 7.3 mg/dL (8.4-10.2); CARBON DIOXIDE 18 mmol/L (22-29); CHLORIDE 106 mmol/L (98-107); CREATININE, SERUM 1.24 mg/dL (0.72-1.25); EST GLOMERULAR FILTRATION RATE > 60 ML/MIN (60-); GLUCOSE 285 mg/dL (74-118); POTASSIUM 5.6 mmol/L (3.5-5.1); SODIUM 140 mmol/L (136-145)
[2018-10-07 21:20] LABS: BAND NEUTROPHILS % (MANUAL) 11 %; LYMPHOCYTES % (MANUAL) 6 % (19-48); METAMYELOCYTES % (MANUAL) 1 % (0-0); MONOCYTES % (MANUAL) 8 % (3.4-9.0); NEUTROPHILS % (MANUAL) 74 % (40-74); NUCLEATED RED BLOOD CELLS 1; PLATELET ESTIMATE ADEQUATE; PLATELET MORPHOLOGY COMMENT NORMAL; RBC MORPHOLOGY COMMENT NORMAL
--- NOTE | 2018-10-07 22:31 | NUR ---
Spoke with Dr. Carmichael at bedside, new orders for IV antibiotics. He spoke with Dr. Mantilla via phone and collectively decided it would be in the best interest of the pt to wait for CT until pressors are down. Plan to try in am if pt condition allows. Spoke with Dr. Mantilla via phone, new orders for ABG, CBC, BMP. Labs drawn and results called to Dr. Mantilla. Bicarb gtt rate up to 150 & okay to give kayexalate for K+ of 5.4. Dr. Mantilla wants primary team to consult nephrology. Paged Dr. Davis, Dr. Martin covering, awaiting call back.
[2018-10-07] MEDS ORDERED: SODIUM CHLORIDE 0.9% 250ML 250 ML ONE (23:34)
[2018-10-08] VITALS (21 sets, daily range): BP systolic 84–127; BP diastolic 46–70
--- NOTE | 2018-10-08 00:03 | Consultation ---
DATE OF CONSULTATION: 10/07/2018 REASON FOR CONSULTATION: Sepsis septic shock. HISTORY OF PRESENT ILLNESS: Thank you so much for seeing this patient. The patient is seen and examined. Chart reviewed. Discussed with the . Discussed with Dr. Mantilla. Discussed with nursing team. This patient who is a 52-year-old white male has some muscular dystrophy, chronic trach. He has a vent in the house. Has history of dysphagia, feeding tube. He has genetic muscular dystrophy. The patient apparently three months ago had problem with the machine, was not able to work, though the called the company and new machine, but the patient was not feeling well, so [facility]. Apparently, he was there for like a month. Then he was transferred to the resort, where he was getting therapy and apparently he was getting better slowly. The patient who has been on antibiotic all this time for pneumonia and aspiration as well as some mucus plugs, but apparently in last few days, he is not doing too well. He was transferred to the intensive care unit here at [facility]. Started on antibiotic. He was on Zosyn, vancomycin, but today yesterday he was on vasopressors, but today his blood pressure dropped and had to be more demanding on vasopressors. The patient is lethargic. I was asked to see him. His antibiotic was changed to meropenem and vancomycin. The patient who can respond to voice commands, but he is extremely weak and he looks really lethargic and extremely he looks very ill at the present time and the at the bedside. We did discuss about his condition at length and we talked even about DNR, but the patient wants everything to be done. So, the patient is currently being in the intensive care unit weak, does not reveal a lot of secretions and history was taken from the , the physician, and the medical team as mentioned above. I do not have the records from previous hospitalization. PAST MEDICAL HISTORY: Multiple sclerosis, muscular dystrophy, chronic vent, dysphagia, anxiety, and pain. PAST SURGICAL HISTORY: Tracheostomy and feeding tube. ALLERGIES: NKA. SOCIAL HISTORY: There is no smoking or drug abuse. FAMILY HISTORY: Noncontributory. REVIEW OF SYSTEMS: Could not be obtained. LABORATORY DATA: Reviewed. His cultures, no growth in 24 hours. Sputum cultures, no growth in 24 hours. His white count is 31 and it was 47.79 today. Hemoglobin is 13 and when he first came, his hemoglobin was 3.4 and he received a blood transfusion of 6 units. His platelet is 381. His sodium 142, potassium 6.4, now it is 5.4. His glucose is 149. His review of systems is extremely lethargic. PHYSICAL EXAMINATION: VITAL SIGNS: Heart rate 140, respirations 24, and blood pressure 105/60. HEENT: Normocephalic. Does not appear icteric. CHEST: Few crackles in the bases. ABDOMEN: Soft, but I was unable to hear any bowel sound. EXTREMITIES: No edema. SKIN: No rash. IMPRESSION: Sepsis septic shock. I am really concerned that the source is abdomen. I would recommend to add Flagyl, hold the feeding tube, put the G-tube to gravity. Check CBC, Chem panel daily, amylase, lipase, and we will need CT abdomen and pelvis with contrast and CT chest. However, the patient is extremely ill at the present time. We will continue supportive care. If he improved overnight, can proceed in the morning. He is also on steroid. Prognosis is extremely poor. We will follow. MD MICHELL Quiroz/GEO /[id number]
[2018-10-08] MEDS: CEFEPIME 1GM/NS 0.9% 50 ML 50 ML IV SCH ×3 (00:21→23:28)
[2018-10-08] MEDS: HYDROCORTISONE SOD SUCCINATE 100 MG VIAL IV SCH ×4 (00:21→23:28)
[2018-10-08] MEDS: PANTOPRAZOL 40MG/SOD CHL 0.9% 50 ML IV SCH ×4 (00:21→23:28)
[2018-10-08] MEDS: METRONIDAZOLE 500MG/NS 100ML 100 ML IV SCH ×4 (00:28→17:42)
[2018-10-08] MEDS: LEVALBUTEROL HCL SOLN NEBU 0.63 MG/3 ML NEB INH SCH ×6 (02:43→23:00)
--- NOTE | 2018-10-08 04:02 | NUR ---
Concern for occluded catheter. Flushed and repositioned tubing/bag several times with no urine draining. Attempted reinserting 18F catheter as well as coude, both were unsuccessful. Scrotum appears to have dependent edema, will elevate and continue to monitor. Bladder scan showed [address] Martin.
[2018-10-08 04:38] LABS: BASOPHILS # (AUTO) 0.2 (0.0-0.1); BASOPHILS % 0.4 % (0.0-1.0); EOSINOPHILS % 0.1 % (0.0-6.0); HEMATOCRIT 39.6 % (38.2-49.6); HEMOGLOBIN 13.1 g/dL (14.0-18.0); LYMPHOCYTES % 1.9 % (18.0-39.1); MEAN CORPUSCULAR HEMOGLOBIN 30.6 pg (28-32); MEAN CORPUSCULAR HGB CONC 33.1 g/dL (31-35); MEAN CORPUSCULAR VOLUME 92.5 fL (81-99); MONOCYTES # (AUTO) 1.8 (0.2-0.8); MONOCYTES % 3.6 % (4.4-11.3); NEUTROPHILS # (AUTO) 45.1 (2.1-6.9); NEUTROPHILS % 90.7 % (38.7-80.0); PLATELET COUNT 371 x10e3/uL (140-360); RED BLOOD COUNT 4.28 x10e6/uL (4.3-5.7); RED CELL DISTRIBUTION WIDTH 16.2 % (11.7-14.4)
[2018-10-08 04:57] LABS: ALANINE AMINOTRANSFERASE > 4113 IU/L (0-55); ALBUMIN/GLOBULIN RATIO 0.6 (0.8-2.0); ALKALINE PHOSPHATASE 158 IU/L (40-150); ANION GAP 23.4 mmol/L (8-16); BLOOD UREA NITROGEN 60 mg/dL (7-26); BUN/CREATININE RATIO 39 (6-25); CARBON DIOXIDE 18 mmol/L (22-29); CHLORIDE 99 mmol/L (98-107); CREATININE, SERUM 1.53 mg/dL (0.72-1.25); EST GLOMERULAR FILTRATION RATE 48 ML/MIN (60-); GLUCOSE 353 mg/dL (74-118); POTASSIUM 5.4 mmol/L (3.5-5.1); SODIUM 135 mmol/L (136-145)
[2018-10-08 04:59] LABS: CALCIUM 6.7 mg/dL (8.4-10.2)
[2018-10-08 05:01] LABS: AMYLASE 36 U/L (25-125); LIPASE 30 U/L (8-78)
[2018-10-08] MEDS: VANCOMYCIN 1GM/NS 250 ML 250 ML IV SCH (06:20)
--- NOTE | 2018-10-08 06:26 | NUR ---
New consult for nephrology ordered and physician notified. Will see patient today.
--- NOTE | 2018-10-08 07:03 | NUR ---
Notified Dr. Pérez of Ca+ 6.7 and problem regarding shultz placement. Order to consult urology, Dr. Ayala. Will consult at this time. Report given to MELANIE Montgomery.
--- NOTE | 2018-10-08 07:22 | Diagnostic Imaging Report ---
EXAMINATION: CHEST SINGLE (PORTABLE) INDICATION: ^respiratory failure and PNA ^[id number] ^[id number] ^Y COMPARISON: 10/07/2018 FINDINGS: AP view TUBES and LINES: Stable tracheostomy tube and left subclavian central venous catheter. LUNGS: Lungs are well inflated. Improved bilateral airspace opacities. Residual patchy airspace opacity mainly in the right suggestive of superimposed pneumonia. PLEURA: Small bilateral pleural effusions, decreased on the right and is stable on the left. No pneumothorax. HEART AND MEDIASTINUM: The cardiomediastinal silhouette is unremarkable.. BONES AND SOFT TISSUES: No acute osseous lesion. Soft tissues are unremarkable. UPPER ABDOMEN: No free air under the diaphragm. IMPRESSION: Improved pulmonary edema. Residual multifocal pneumonia. Signed by: Dr. Moriah Hall M.D. on 10/08/2018 7:19 AM
[2018-10-08] MEDS ORDERED: DEXTROSE 5% 250ML 250 ML IV ONE (07:25)
[2018-10-08] MEDS: IPRATROPIUM BROMIDE 0.02% 2.5 ML NEB NEB SCH ×4 (07:40→23:30)
[2018-10-08] MEDS: PHENYLEPHRINE 10MG/ML VIAL 40 MG in DEXTROSE 5% 250ML 246 ML IV PRN (07:40)
--- NOTE | 2018-10-08 08:00 | Progress Note ---
DATE: 10/08/2018 Cardiology Progress Note SUBJECTIVE: The patient is unresponsive and not able to answer questions. OBJECTIVE: VITAL SIGNS: Temperature 98.0, pulse 126, respiratory rate 22, blood pressure 104/62, oxygen saturation 96% on mechanical ventilator. GENERAL: Somnolent. Family at the bedside. NECK: Supple. Trach in place. LUNGS: Diminished breath sounds throughout with scattered wheezes and rhonchi. No crackles noted. CARDIOVASCULAR: Regular rate and rhythm. Tachycardic. No murmurs, no gallops. ABDOMEN: Soft. Hypoactive bowel sounds. EXTREMITIES: All cool to the touch. Diminished pulses. CARDIOVASCULAR MEDICATIONS: Norepinephrine IV titrate, phenylephrine IV titrate, vasopressin IV titrate. LABORATORY DATA: WBC 49.77, hemoglobin 13.1, hematocrit 39.9, platelets 371. Sodium 135, potassium 5.4, BUN 60, creatinine 1.53, potassium 6.7, AST 4202, ALT 4113. IMPRESSION: 1. Sinus tachycardia. 2. Acute anemia, requiring transfusion. 3. Chronic respiratory failure. Trach in place. 4. Multiple sclerosis. 5. Hypertension, requiring multiple pressors. 6. Electrolyte imbalance and hyperkalemia. 7. Sepsis. RECOMMENDATION: Preliminary echocardiogram reflecting ejection fraction of 35% to 40%, awaiting review, recommendations will follow. At this time, continue the above-listed cardiac medication. Recommend CT of the chest to rule out PE. Continue antimicrobial therapy per Infectious Disease. Monitor this patient very closely. Dictated by Arlette Kaur NP MD CRESCENCIO Boyce/GEO /[id number]
[2018-10-08] MEDS: BUSPIRONE HCL 5 MG TAB PO SCH (09:00)
[2018-10-08 09:24] LABS: BAND NEUTROPHILS % (MANUAL) 8 %; LYMPHOCYTES % (MANUAL) 3 % (19-48)
[2018-10-08 09:25] LABS: MONOCYTES % (MANUAL) 5 % (3.4-9.0); NEUTROPHILS % (MANUAL) 84 % (40-74); PLATELET ESTIMATE ADEQUATE; PLATELET MORPHOLOGY COMMENT NORMAL; RBC MORPHOLOGY COMMENT NORMAL
[2018-10-08 09:32] LABS: NUCLEATED RED BLOOD CELLS 2
[2018-10-08] MEDS ORDERED: DEXTROSE 50% SYRINGE 50 ML IV PRN ×2 (11:45→16:15)
[2018-10-08] MEDS ORDERED: IOTHALAMATE MEGLUMINE 17.20% 250 ML BTL ONE (13:25)
--- NOTE | 2018-10-08 13:42 | Consultation ---
DATE OF CONSULTATION: 10/08/2018 Urology Consultation REASON FOR CONSULTATION: Possible Bernabe catheter malfunction. HISTORY OF PRESENT ILLNESS: Ortiz Sloan is a chronically ill, very unfortunate 52-year-old man. He had an episode of pneumonia and was treated in [facility] in [place]. He was subsequently performing rehabilitation at the [facility]. The patient became ill, was brought to the emergency room and was admitted here. The patient apparently is in septic shock. There was decreased urinary output from his Bernabe catheter while on numerous pressors. Bladder scanning revealed a volume of greater than 200 mL. The nurses removed the Bernabe catheter, inserted new Bernabe catheter and were unable to get output, therefore urological consultation was sought. I requested the nurses replace the Bernabe catheter with an 18-Mongolian Bernabe catheter and irrigate the bladder. The patient has not had any significant urinary output since the Bernabe catheter was replaced. The patient is too unstable to go to the CT scanner at this time. Past urological history is none. PAST MEDICAL AND SURGICAL HISTORY: 1. Pneumonia. 2. Autosomal recessive muscular dystrophy for 13 years. 3. Status post tracheostomy. 4. Home ventilator. 5. Dysphagia. 6. Gastrostomy tube. 7. Inguinal hernia repair. 8. Current admission for sepsis. 9. Chronic pain. 10. Anxiety. SOCIAL HISTORY: The patient does not smoke, drink, or use any drugs. He works for [employer] in the office and has a supportive family at the bedside. FAMILY HISTORY: Noncontributory to the active urological problems. One of his three siblings has muscular dystrophy as well. CURRENT MEDICATIONS: Please refer to the MAR. ALLERGIES: ACETAMINOPHEN, HYDROCODONE, ALPRAZOLAM, AND LORAZEPAM. REVIEW OF SYSTEMS: Discussed as above in history of present illness and past medical history, otherwise negative for all systems. PHYSICAL EXAMINATION: GENERAL: Severely ill man, lying in bed, in no apparent distress. He is on numerous pressors. He is tachycardic. He is on a ventilator. He does not seem to be responsive. ABDOMEN: Soft, but slightly distended. There is a gastrostomy tube in place. No masses are palpable. GENITOURINARY: There is penoscrotal edema, it is difficult to discern the testes. The patient has what appears to be a circumcised male phallus with edema of the inner foreskin remnant ventrally. There is a Bernabe catheter in place with no output. For the remaining physical exam systems, please refer to the history and physical on chart and the other physician's notes. LABORATORY STUDIES: Sputum culture reveals Staphylococcus aureus. Urine culture is negative. Hemoglobin was 3.4 upon admission, today it is 13.1; white blood cell count is 49,770; platelets are 371,000. The patient's creatinine has increased from a baseline of normal to 1.53. His sodium is low at 135, potassium is high at 5.4, calcium is low at 6.7. There are no urologically relevant radiographic studies available at the present time. ASSESSMENT: 1. Severe leukocytosis. 2. Anemia. 3. Hyponatremia. 4. Acute renal failure. 5. Hypocalcemia. 6. Hyperkalemia. 7. Possible urinary tract infection according to the initial urinalysis, but urine culture was negative. 8. Sepsis, present on admission. 9. Bernabe catheter in situ. PLAN: 1. I will order a bedside cystogram. 2. Instructed the nurses to irrigate Bernabe catheter. 3. Multidisciplinary care. 4. Defer the electrolyte and hematological abnormalities to the admitting physician. 5. I defer the choice of antibiotics to the Infectious Disease industry consultant on the case. Thank you very much for involving us in the care of your patient. We will follow the patient with you. Ryan Ayala MD OH/SCOTTL /[id number]
--- NOTE | 2018-10-08 13:48 | Diagnostic Imaging Report ---
EXAM: Abdomen 1 Views INDICATION: ^contrast ^[id number] ^1200 COMPARISON: Chest radiograph 10/08/2018 FINDINGS: Lines/tubes: Few small catheters overlying the right upper quadrant may be external to the patient. Bernabe catheter overlying the lower pelvis at midline, which is obscured by the oral contrast of the colon. Moderate amount of oral contrast in the colon and rectum. No dilated loops of small bowel. No renal calculi. No abnormal soft tissue masses. Mild degenerative changes in the lumbar spine and pelvis. IMPRESSION: 1. Moderate amount of retained oral contrast throughout the colon and rectum. 2. Bernabe catheter overlying the lower pelvis at midline. Signed by: Dr. Moriah Hall M.D. on 10/08/2018 1:44 PM
--- NOTE | 2018-10-08 14:26 | Consultation ---
DATE OF CONSULTATION: 10/08/2018 Neurology Consult Note HISTORY OF PRESENT ILLNESS: Mr. Sloan is critically ill in the intensive care unit of [facility]. History is provided by the patient's , who is at the bedside. Mr. Sloan is a 52-year-old kbwy-fsuf-funcjuha man with past medical history significant for limb-girdle muscular dystrophy and sinus tachycardia, admitted to [facility] on October 06, 2018, with fevers, hypotension, and tachycardia. The Neurology service is consulted for recommendations regarding treatment of limb-girdle muscular dystrophy. Approximately one month prior to this admission, the patient experienced a prolonged hospitalization at [facility] for pneumonia. During this hospitalization, the patient underwent tracheostomy and PEG tube placement. He was then transferred to the [facility] for further care. Over a period of a few days at the [facility], the patient became febrile with hypotension and tachycardia. Furthermore, the patient's noted pallor as well as black stool. On the afternoon of October 06, 2018, the patient was transported to the emergency center at [facility] for further evaluation of his symptoms. Upon arrival at the emergency center, the patient's temperature was 99.8. His blood pressure was 95/63 mmHg with a pulse of 142 beats per minute and a respiratory rate of 35 breaths per minute. Documentation of the patient's physical examination is unavailable for review at this time. Routine laboratory data found the patient to be dehydrated. The CBC with differential and platelets revealed an elevated white blood cell count of 31.10 with a left shift and severe anemia with a hemoglobin of 3.4 and a hematocrit of 11.9. The patient underwent a chest x-ray while in the emergency center. This study revealed patchy right lung airspace opacity likely aspiration or pneumonia. Mr. Sloan was then admitted to the intensive care unit at [facility] for further evaluation and treatment of his symptoms. Mr. Sloan has pneumonia. He is status post bronchoscopy to remove a mucus plug. He is receiving intravenous antibiotics. Mr. Sloan is septic. His blood pressure is being maintained by three pressors, two of which are "maxed out." As regard to the patient's anemia, he is status post transfusion of 6 units packed red blood cells. His hemoglobin and hematocrit have stabilized. Mr. Sloan did have a positive stool occult blood, so it is presumed the source of the anemia is GI bleed. The patient's liver function tests and ammonia level are markedly elevated over the past 48 hours. Today, 10/08/2018, the patient is less responsive as compared to 10/07/2018. However, the patient did receive fentanyl infusion for approximately 90 minutes on 10/07/2018. Lastly, today a mild decline in the patient's renal function is noted. Mr. Sloan was diagnosed with limb-girdle muscular dystrophy approximately 10 to 15 years ago. His younger brother has the disease as well. Their father has been identified as a carrier. Prior to the last two months, Mr. Sloan did experience weakness in the proximal muscles of the arms and legs resulting in a limited ability to lift his arms above his head or to stand from a seated position, climb stairs, etc. However, the patient was able to work for [employer]. He attended an exercise program for [employer]. Overall, the patient's reports Mr. Sloan was "doing quite well." Mr. Sloan is followed by a neuromuscular specialist. He is not taking a steroid or any other specific treatment for muscular dystrophy. REVIEW OF SYSTEMS: Unable to obtain secondary to the patient being status post tracheostomy. PAST MEDICAL HISTORY: Sinus tachycardia, gastroesophageal reflux disease, one other gastrointestinal disease the does not recall, limb-girdle muscular dystrophy. PAST SURGICAL HISTORY: Tracheostomy, PEG tube placement, inguinal hernia repair. PAST HOSPITALIZATIONS: Surgeries/procedures as listed, multiple recent hospitalizations as detailed in the history of present illness. FAMILY MEDICAL HISTORY: As per the history of present illness. SOCIAL HISTORY: Mr. Sloan is . Until recently, he worked for [employer]. The patient's does not report current or prior tobacco, alcohol, or recreational drug use. HOME MEDICATIONS: Acetaminophen 650 mg by mouth as needed every 12 hours, albuterol nebulizer, aspirin 81 mg via G-tube daily, buspirone 15 mg via G-tube three times daily, Colace 10 mL via G-tube twice daily, Pepcid 20 mg via G-tube every 12 hours, Hemocyte Plus capsule one capsule via G-tube daily, Advair 1 inhalation every 24 hours as needed, guaifenesin 10 mL per G-tube q.6 hours, metoprolol 25 mg per G-tube every 12 hours, midodrine 5 mg per G-tube, montelukast 10 mg per G-tube at bedtime daily, quetiapine 12.5 mg per G-tube at bedtime daily, Senna-Lax one tablet per G-tube as needed. HOSPITAL MEDICATIONS: BuSpar, cefepime, dextrose, dobutamine, fentanyl, hydrocortisone, ipratropium, levalbuterol, metronidazole, norepinephrine, Protonix, phenylephrine, quetiapine, vancomycin, vasopressin. ALLERGIES: ALPRAZOLAM, LORAZEPAM, HYDROCODONE, ACETAMINOPHEN. NO KNOWN FOOD ALLERGIES. NO KNOWN ALLERGIES TO LATEX. NO KNOWN ALLERGIES TO IODINE OR OTHER CONTRAST MATERIALS. PHYSICAL EXAMINATION: VITAL SIGNS: At present, the patient is receiving Protonix at 8 mg/hour, vasopressin at 0.04 units/minute, phenylephrine at 140 mcg/minute, and norepinephrine at 30 mcg/minute. Height 69 inches, weight 118 pounds, BMI 17.4 kg/sq m, blood pressure 104/66 mmHg, pulse 124 beats per minute, respiratory rate 26 breaths per minute. Oxygen saturation 98% on ventilator settings as follows: Oxygen concentration 100%, PEEP 8 cm of water, respiratory rate 18 breaths per minute, tidal volume 400 mL. GENERAL: The patient is awake and alert, mild respiratory distress. Thin. HEENT: Normocephalic, atraumatic. Pupils are equal, round, and sluggishly reactive to light. Moist mucous membranes. NECK: Supple. No appreciable thyromegaly. No appreciable carotid bruits. CARDIOVASCULAR: S1, S2, tachycardic, regular rhythm. No murmurs, rubs, or gallops. RESPIRATORY: Decreased air movement and expiratory wheezes throughout anteriorly. EXTREMITIES: The skin is cool to the touch and dry. No clubbing, cyanosis, or edema. The posterior tibial and dorsalis pedis pulses are trace and symmetric. SKIN: No rashes or lesions. NEUROLOGIC: Memory/Attention: The patient is awake and alert, oriented to person and place ([facility], [place], [facility]). Mr. Sloan intermittently follows simple commands. Cranial Nerves: Cranial nerve 1, not tested. Cranial nerve 2, 3, 4, and 6; pupils are equal and round, react sluggishly to light (from 4 mm to 2 mm). Extraocular movements intact. No nystagmus. Cranial nerve 5, sensation to pinprick is intact in the bilateral V1 through V3 distributions. Strength in the temporalis and masseter muscles is within normal limits. Cranial nerve 7, the face is symmetric as are all facial movements. Strength appears moderately diminished bilaterally. Cranial nerve 8, hearing is intact to finger rub bilaterally. Cranial nerve 9, 10, the soft palate elevates equally and symmetrically. Cranial nerve 12, the tongue protrudes midline and moves symmetrically from [id number]. Strength: Bulk is markedly diminished in both arms and both legs. Strength in the bilateral deltoids is approximately 1/5. The arm flexors 4+/5 and the extensors are 4/5. The hip flexors are approximately 1/5. Mr. Sloan does not participate in the formal assessment of strength in the remaining muscles in both legs. Normal functional movements of both legs are noted. Tone is normal in both arms and both legs. DTRs: Deep tendon reflexes are trace and symmetric at the triceps, biceps, brachioradialis, and patellas. Deep tendon reflexes are absent and symmetric at the Achilles. Plantar responses are mute bilaterally. Sensation: The patient withdraws all four extremities to peripheral noxious stimulation. Cerebellar: Unable to assess secondary to weakness. Gait: Deferred. Speech: Unable to assess secondary to the patient being status post tracheostomy. Involuntary Movements: None. Pronator Drift: As per motor exam. LABORATORY DATA: The most recent comprehensive metabolic panel is significant for a potassium of 5.4, carbon dioxide of 18, anion gap of 23.4, BUN of 60, creatinine of 1.53, estimated GFR of 48, serum glucose of 353, calcium of 6.7, total bilirubin of 1.4, AST of greater than 4202, ALT of greater than 4113, alkaline phosphatase of 158, total protein of 5.1, albumin of 2.0, albumin to globulin ratio of 0.6. Cardiac enzymes are negative x3. Vitamin B12 is 531. Folate 21.5. Iron 8, TIBC 256, percent saturation 3, transferrin 183, ferritin 201.81. Lactic acid 63.6, 54.7. Amylase 36, lipase 30. Ammonia 273. The CBC with differential and platelets reveals a white blood cell count of 49.77 with a left shift with 90.7% neutrophils, 1.9% lymphocytes, 3.6% monocytes, 0.1% eosinophils, and 0.4% basophils. The hemoglobin and hematocrit are 13.1 and 39.6, respectively. The platelet count is 371. An arterial blood gas drawn on October 07, 2018, reveals a pH of 7.18, pCO2 of 54, pO2 of 174, bicarbonate of 20, O2 saturation of 99.0, base excess of -9.0, and FiO2 of 100. PT 15.9, INR 1.21, PTT 36.4, D-dimer quantitative 3.02. A urinalysis collected on October 06, 2018, revealed slightly cloudy urine with 2+ protein, moderate amorphous sediment, many urine bacteria, and moderate urine mucus. Stool occult blood was positive on October 07, 2018. C difficile toxin A and B are pending. A sputum sample collected on October 06, 2018, grew Staphylococcus aureus. Blood cultures collected on October 06, 2018, revealed no growth after 24 hours. A urine culture collected on October 06, 2018, reveals no growth after 36-48 hours. DIAGNOSTIC STUDIES: Electrocardiogram of 10/06/2018: Sinus tachycardia at 141 beats per minute with a shortened CO interval. Chest x-ray of 10/06/2018: Low lung volumes. Patchy right lung airspace opacity, likely aspiration or pneumonia in the proper clinical setting. Likely small bilateral pleural effusions. Echocardiogram of 10/07/2018: Ejection fraction 35% to 40%. Tachycardic. Moderate tricuspid regurgitation. Chest x-ray of 10/07/2018: Again seen bilateral airspace opacities, representing [id number]-hr-[id number] edema and/or pneumonia. Decreased right lung opacification with improved aeration, representing decreased edema/effusion or pneumonia. Chest x-ray of 10/08/2018: Improved pulmonary edema. Residual multifocal pneumonia. ASSESSMENT AND PLAN: Mr. Sloan is a 52-year-old [id number]-cfxtmvng man with past medical history significant for limb-girdle muscular dystrophy, admitted to [facility] on October 06, 2018, with pneumonia, sepsis, and anemia secondary to gastrointestinal bleed. The patient has undergone a thorough neurological examination with findings detailed above. The patient's laboratory data and other diagnostic studies have been reviewed and are documented above. 1. Neurologic: Limb-girdle muscular dystrophy is a genetic disorder for which there is no treatment/cure. The [place] [employer] recommends prednisone 0.75 mg/kg per day to support strength/respiratory status. The patient is receiving hydrocortisone 100 mg intravenously every 8 hours. There is no evidence higher doses of steroids will give additional benefit. Continue hydrocortisone 100 mg intravenously every 8 hours. Monitor for side effects of steroid use. Avoid sedative/hypnotic and pain medications as these will alter the patient's sensorium. 2. Endocrine: Over the past 24-48 hours, the patient's serum glucoses have been elevated, probably secondary to treatment with intravenous steroids. Sliding scale insulin per protocol will be prescribed. 3. Cardiovascular: Mr. Sloan is hypotensive and tachycardic on three pressors, two of which are "maxed out." Monitor vital signs per unit protocol and adjust pressor support as needed. 4. Respiratory: The patient is status post tracheostomy. He is being mechanically ventilated. Continue nebulized treatments as prescribed. Continue intravenous steroids as detailed above. Defer further treatment to the Pulmonary/Critical Care service. 5. FEN/GI: Mr. Sloan is status post PEG tube placement. He is currently n.p.o. The patient's liver enzymes and ammonia are markedly elevated over the past 48 hours. Avoid medications which are metabolized/excreted through the liver. 6. Renal: A Bernabe catheter is in place. Renal function has declined over the past 24 hours. Monitor strict I's and O's. Monitor daily labs and replete electrolytes per unit protocol. 7. Hematology/Oncology: Mr. Sloan was severely anemic on admission, probably secondary to a GI bleed. He is status post transfusion of 6 units of packed red blood cells. His H and H are stable. Monitor with daily labs. 8. Infectious Disease: Mr. Sloan has a multifocal pneumonia. The Infectious Disease service is concerned regarding a possible source of infection in the abdomen. It is recommended the patient undergo a CT of the chest/abdomen/pelvis with contrast when medically stable. In the interim, current antibiotics will be continued. Followup recommendations from the Infectious Disease service. Mr. Sloan is febrile, on a cooling blanket. 9. GI prophylaxis with a Protonix drip. DVT prophylaxis with JOSH hose and SCDs. 10. Mr. Sloan is critically ill. His prognosis is very poor. The information dictated above was discussed with the patient's , but she does not appear to fully appreciate the gravity of the situation. Thank you for this consultation. I will continue to follow the patient while he remains in the hospital. TIME SPENT: 70 minutes. An Mcintyre MD CP/GEO Cowan: 10/08/2018 12:03:39 /[id number]
--- NOTE | 2018-10-08 14:58 | Diagnostic Imaging Report ---
EXAM: Pelvis x-ray 2 Views INDICATION: ^FIRST FILL BLADDER WITH 30 TO 50 CC OF CONTRAST: CYSTOGRAM ^[id number] ^[id number] COMPARISON: KUB 10/08/2018 FINDINGS: Lines/tubes: None. Again noted, there is retained oral contrast in the rectum and descending colon. No dilated loops of bowel in the pelvis. A total of 50 cc of Gastrografin were injected through the Bernabe catheter, which is overlying the rectum containing the oral contrast. Bernabe catheter again is overlying the lower pelvis and midline. No renal calculi. No abnormal soft tissue masses. Mild degenerative changes in the lumbar spine and pelvis. IMPRESSION: 1. Difficult visualization of the urinary bladder which is overlying the oral contrast in the rectum. However, Bernabe catheter is overlying the contrast pouch and likely in the urinary bladder. 2. Patient is scheduled for CT abdomen and pelvis. Recommend cleaning of the oral contrast in the colon prior to CT, otherwise, CT will be non diagnostic. Signed by: Dr. Moriah Hall M.D. on 10/08/2018 2:54 PM
--- NOTE | 2018-10-08 16:21 | Progress Note ---
DATE: 10/08/2018 Internal Medicine Progress Note SUBJECTIVE: The patient is less responsive today due to the high ammonia level. PHYSICAL EXAMINATION: VITAL SIGNS: Blood pressure is 104/66, temperature 101.2, heart rate 124 per minute, respiratory rate 26 per minute, oxygen saturation 98%. HEART: Showed regular rhythm. Normal S1, S2 sound. LUNGS: Clear bilaterally. ABDOMEN: Soft. EXTREMITIES: Atrophy in upper and lower extremities. LABORATORY DATA: On the BNP sodium 135, potassium 5.4, chloride 99, CO2 18, BUN 60, creatinine 1.53, glucose . CBC; white count 49,700, hemoglobin is 13.1, hematocrit 39.6, platelet count 371,000. PT 15.98 PTT 36.4, INR 1.21. AST 420, ALT 411, total bilirubin 1.4, alkaline phosphatase 158. FINAL IMPRESSION: 1. Septic shock. 2. Acute on chronic renal failure. 3. Transaminitis, most likely secondary to shocky liver. 4. Hepatic encephalopathy. 5. Hyperkalemia. 6. Multiple sclerosis myopathy. 7. Status post severe anemia. 8. Chronic respiratory failure. 9. Uncontrolled diabetes mellitus type 2 with chronic renal insufficiency. PLAN OF TREATMENT: We are going to start lactulose 20 g q.6 hours. Continue to monitor ammonia level. Continue Xopenex and Atrovent q.4 to 6 hours, Xopenex q.4 hours , Protonix, drip, continue dobutamine drip. Continue metronidazole 500 g IV q.6 hours, Seroquel 25 mg at bedtime, vancomycin 1 g IV twice a day, Levophed drip, Seroquel 12.5 mg at bedtime, phenylephrine titrate continue IV push as needed for hypoglycemia. Continue to monitor blood sugar q.6 hours, cefepime 1 g IV twice a day, BuSpar 15 mg three times a day. We are going to discontinue the Seroquel due to change in mental status. Continue monitoring ammonia levels. Dr. Mcintyre has been consulted from the Neurology point of view due to a change in mental status, most likely secondary to hepatic encephalopathy. Dr. Mantilla is here from Critical Care and Pulmonary, Dr. Anton Davis for Gastroenterology due to severe anemia, anemia workup is in progress. has been consulted because of worsening renal insufficiency q.6h has been ordered. I am going to recheck a CMP and CBC tomorrow. Recheck potassium today, the patient is critically ill, very poor prognosis Internal Medicine. discussed with nurse time. Time spent 59 minute. MD KAREN Purdy/GEO /[id number]
[2018-10-08] MEDS: INSULIN LISPRO 100 UNIT/1 ML 3ML VIAL SQ SCH ×2 (16:30→19:55)
--- NOTE | 2018-10-08 16:46 | Consultation ---
DATE OF CONSULTATION: 10/08/2018 Endocrine Consultation The patient of Dr. Davis Thank you very much for referring this patient. Most of the history is available from the nursing staff and from the patient's . HISTORY OF PRESENT ILLNESS: This is a 52-year-old white male gentleman, who is referred to me for evaluation of acute onset of hyperglycemia and mild diabetic ketoacidosis. The patient has a very eventful history. He has history of muscular dystrophy, limb-girdle type. The patient is on the ventilator. He came to the hospital with history of severe anemia. He is in septic shock, on multiple pressors at this time. His blood sugar at the time of admission was around 135 to 169. Presently, the blood sugar has jumped up to 353 and his anion gap is presently 23.4, and his lactic acid levels are 63.6. The patient also has significantly high liver enzymes. He is in liver shock as well. PHYSICAL EXAMINATION: GENERAL: As already mentioned, the patient is barely responsive. He is having labored breathing. VITAL SIGNS: Heart rate is around 130 and blood pressure is 92/50 mmHg. HEENT: Essentially unremarkable. NECK: Thyroid is palpable. Clinically, he looks near euthyroid. CHEST: Bilateral vesicular breathing. He has bilateral bronchospasm. CARDIOVASCULAR: First and second heart sounds. There is no third or fourth heart sounds with the systolic grade 2/6. CLININCAL IMPRESSION: Septic shock, severe anemia, muscular dystrophy, limb-girdle type, lactic acidosis, rule out diabetes mellitus, metabolic ketoacidosis and liver shock. PLAN: The plan at this time is to do hemoglobin A1c, thyroid function tests. Monitor his blood sugars closely. Start him on insulin drip and fluid management. Thanks for referring this patient. I will be following this patient with you. MD MARTA Bundy/GEO /[id number]
[2018-10-08 17:39] LABS: FREE T4 (FREE THYROXINE) 0.66 ng/dL (0.8-1.8); THYROID STIMULATING HORMONE 2.677 uIU/mL (0.350-4.940)
[2018-10-08] MEDS: INSULIN REGULAR, HUMAN 3ML VL 100 UNIT in SODIUM CHLORIDE 0.9% 99 ML IV SCH ×4 (17:53→21:02)
--- NOTE | 2018-10-08 17:56 | Progress Note ---
DATE: 10/08/2018 SUBJECTIVE: Mr. Sloan remains in intensive care unit but more alert, follows simple command. His is at the bedside. Discussed the case with Internal Medicine and medical team, the patient who remains on three vasopressors. Very weak and lethargic. No new complaints. PHYSICAL EXAMINATION: GENERAL: He is alert but very weak. VITAL SIGNS: His temperature 101.9, heart rate 126, blood pressure 104/62. HEENT: Normocephalic, not icteric. NECK: Supple. CHEST: Few crackles at the bases. COR: S1, S2. No S3, S4, or murmur. ABDOMEN: Soft. Bowel sound hypoactive. EXTREMITIES: No edema. SKIN: No rash. LABORATORY DATA: Sputum cultures, Staph aureus. Blood cultures still pending. White count today is 49.7, hemoglobin of 13, hematocrit 39, his platelet 371. Sodium 135, potassium 5.4, creatinine 1.53. His total bilirubin 1.4, AST 4202, ALT 4113. IMPRESSION: Sepsis septic shock, present on admission source. I am still concerned about intraabdominal process such as ischemic colitis, Clostridium difficile colitis, ruptured diverticulum or ruptured gut. The problem is the patient is too ill to put to do any CAT scan to make any diagnosis. His prognosis remains extremely poor. Continue with cefepime, he is on 1 g q.12. Continue with metronidazole on 500 q.6 and he is on vancomycin 1 g q.12 hours. He is going into acute kidney injury, so I am going to hold off the vancomycin for the time being. Continue with cefepime and Flagyl. Continue supportive care. He remains on three vasopressors, white count getting worse. We will change his vancomycin to 1 g q.24 hour. Discussed with the other medical problems pneumonia or reactive pulmonary infiltrate, autosomal recessive muscular dystrophy. History of tracheostomy, chronic respiratory failure, on home vent. Dysphagia, status post gastrostomy tube. Inguinal hernia repair. Shocky liver. Acute kidney injury going into multiorgan failure. We will follow. MD MICHELL Quiroz/GEO /[id number]
[2018-10-08] MEDS: LACTULOSE SYRUP 20 GM/30 ML UDC PO SCH (18:17)
[2018-10-08 18:25] LABS: ABG HCO3 17 mmol/L (23-28); ABG PCO2 55 mmHg (41-51); ABG PH 7.09 (7.31-7.41); ABG PO2 306 mmHg (80-105)
[2018-10-08] MEDS ORDERED: SODIUM BICARBONATE 8.4% SYRING 100 ML ONE (18:28)
[2018-10-08] MEDS ORDERED: DIGOXIN INJ 0.25 MG/ML 2 ML AMP ONE (18:40)
[2018-10-08] MEDS ORDERED: SODIUM BICARBONATE 8.4% 50 ML VIAL IV ONE (19:00)
[2018-10-08] MEDS ORDERED: AMIODARONE 900MG 500 ML IV ONE (19:00)
[2018-10-08] MEDS: SODIUM BICARBONATE 8.4% SYRING 150 ML in DEXTROSE 5% 1,000 ML IV SCH (19:55)
[2018-10-08] MEDS ORDERED: INSULIN GLARGINE 100 UNITS/ML VIAL SQ SCH ×2 (21:00)
[2018-10-09] VITALS (29 sets, daily range): BP systolic 48–124; BP diastolic 33–77
[2018-10-09] MEDS: RIFAXIMIN 550 MG TABLET PEG SCH ×3 (01:02→09:35)
[2018-10-09] MEDS: LACTULOSE SYRUP 20 GM/30 ML UDC PO SCH ×2 (01:02→06:00)
[2018-10-09] MEDS: METRONIDAZOLE 500MG/NS 100ML 100 ML IV SCH ×2 (01:02→06:23)
--- NOTE | 2018-10-09 02:03 | Consultation ---
DATE OF CONSULTATION: 10/08/2018 REASON FOR CONSULTATION: Acute kidney injury, hyperkalemia, and severe metabolic acidosis. HISTORY OF PRESENT ILLNESS: The patient is a 52-year-old male with past medical history of multiple sclerosis, muscular dystrophy, on chronic ventilator, dysphagia, anxiety, and pain, who was admitted from [facility] with hypotension. The patient is currently in ICU, on 100% FiO2 on three pressors. The patient is severely acidotic with lactic acid level of 63.6. The patient had IV bicarb fluid yesterday. He was also found to be severely anemic with hemoglobin of 3.4 and had 5 units of PRBC. The patient continues to have black tarry stool per nurse. He also had low grade temperature and severely tachycardic. Cardiology and ID has been seen the patient and on broad-spectrum antibiotics that includes metronidazole and vancomycin. He is also on insulin drip. The patient is currently with gasping breathing. His creatinine was found to be at 1.53, where on admission it was normal 0.8. His LFTs are all elevated. Sputum culture is growing Staphylococcus aureus. Chest x-ray showed multifocal pneumonia. The patient was also having problem with irrigation of the Bernabe catheter and seen by Dr. Ryan Ayala. Today, last 12 hours the patient did make any urine per nurse. PAST MEDICAL HISTORY: As above. PAST SURGICAL HISTORY: Tracheostomy, PEG tube placement, and inguinal hernia repair. FAMILY HISTORY: No history of any kidney disease. SOCIAL HISTORY: No history of tobacco, alcohol, or recreational drug abuse. MEDICATIONS: Currently the patient is on insulin drip, metronidazole, pantoprazole, cefepime, three pressors, and vancomycin. REVIEW OF SYSTEMS: Unable to obtain as the patient is currently on the vent, and with gasping breathing, unable to provide me any history. PHYSICAL EXAMINATION: VITAL SIGNS: Blood pressure 84/46, pulse of 124, respirations 26, 100% on 100% FiO2, and temperature 99.9. GENERAL: The patient is lying in bed with gasping breathing. Does not follow any command. HEENT: Atraumatic normocephalic. NECK: Positive trach. HEART: S1 and S2, tachycardia. LUNGS: Coarse breath sounds bilaterally. No wheezing. ABDOMEN: Mildly distended. No bowel sound heard. EXTREMITIES: No edema. NEUROLOGIC: Currently does not follow command. LABORATORY DATA: Sodium 135, potassium 5.4, chloride 99, CO2 of 18, BUN 60, creatinine 1.53, glucose 353, calcium 6.7, and lactic acid repeat one is 54.7. AST more than 4000, ALT more than 4000, alkaline phosphatase 158, lipase is 30, and amylase is 36. White count 4900, hemoglobin 13.1, and platelet count is 371. INR 1.2 on 5th. Blood culture is so far negative. Urine culture, negative. Sputum, Staph aureus. Chest x-ray as per HPI. The patient is too unstable to go for a CT abdomen and pelvis. ASSESSMENT AND PLAN: 1. Acute kidney injury, secondary to septic shock. Acute tubular necrosis. The patient is hemodynamically unstable, to be on conventional hemodialysis at this point. 2. Severe lactic acidosis. Start the patient on bicarb drip. The patient is too unstable to be on dialysis. I discussed with the , who understands. If with IV bicarbonate, the patient get hemodynamically stable, we will need renal replacement therapy, if continues to want everything done for him. 3. Severe anemia, status post PRBC, continue to have melena. GI has seen the patient. The patient is too unstable to get any kind of test at this point. 4. Chronic respiratory failure, currently on vent. Pulmonary Critical Care following. Discussed with the at bedside. The patient's prognosis is very poor. Condition is extremely critical. The patient's daughter is coming to visit him this afternoon. Thank you Dr. Pérez for the consult. MD JEREMY Garcia/MODL /[id number]
[2018-10-09] MEDS: LEVALBUTEROL HCL SOLN NEBU 0.63 MG/3 ML NEB INH SCH ×3 (02:20→11:15)
[2018-10-09] MEDS: INSULIN REGULAR, HUMAN 3ML VL 100 UNIT in SODIUM CHLORIDE 0.9% 99 ML IV SCH ×2 (03:42)
[2018-10-09] MEDS ORDERED: VANCOMYCIN 1GM/NS 250 ML 250 ML IV SCH (05:00)
[2018-10-09 05:11] LABS: BASOPHILS # (AUTO) 0.3 (0.0-0.1); BASOPHILS % 0.5 % (0.0-1.0); HEMATOCRIT 40.6 % (38.2-49.6); LYMPHOCYTES # (AUTO) 0.8 (1.0-3.2); LYMPHOCYTES % 1.5 % (18.0-39.1); MEAN CORPUSCULAR HEMOGLOBIN 30.4 pg (28-32); MEAN CORPUSCULAR VOLUME 95.1 fL (81-99); MONOCYTES # (AUTO) 2.1 (0.2-0.8); MONOCYTES % 3.7 % (4.4-11.3); NEUTROPHILS # (AUTO) 50.1 (2.1-6.9); NEUTROPHILS % 88.4 % (38.7-80.0); PLATELET COUNT 239 x10e3/uL (140-360); RED BLOOD COUNT 4.27 x10e6/uL (4.3-5.7); RED CELL DISTRIBUTION WIDTH 16.2 % (11.7-14.4)
[2018-10-09 05:30] LABS: ALBUMIN 1.9 g/dL (3.5-5.0); ALBUMIN/GLOBULIN RATIO 0.7 (0.8-2.0); ANION GAP 25.1 mmol/L (8-16); CREATININE, SERUM 2.11 mg/dL (0.72-1.25); POTASSIUM 5.1 mmol/L (3.5-5.1)
[2018-10-09 05:32] LABS: CALCIUM 5.9 mg/dL (8.4-10.2)
[2018-10-09] MEDS: PANTOPRAZOL 40MG/SOD CHL 0.9% 50 ML IV SCH ×3 (05:47→10:26)
--- NOTE | 2018-10-09 06:20 | NUR ---
Spoke with and educated family at bedside throughout night about code status and comfort cares. They are exploring options.They are aware of pt condition.
[2018-10-09] MEDS: HYDROCORTISONE SOD SUCCINATE 100 MG VIAL IV SCH (06:23)
--- NOTE | 2018-10-09 06:31 | Diagnostic Imaging Report ---
EXAMINATION: CHEST SINGLE (PORTABLE) INDICATION: ^pna, resp failure ^[id number] ^0540 ^Y COMPARISON: 10/08/2018 FINDINGS: AP view TUBES and LINES: Stable tracheostomy tube and left subclavian central line. LUNGS: Limited by low lung volumes and body habitus. Bilateral airspace opacities. PLEURA: Small bilateral pleural effusions. No visible pneumothorax. HEART AND MEDIASTINUM: The cardiac silhouette is obscured. BONES AND SOFT TISSUES: No acute osseous lesion. Soft tissues are unremarkable. UPPER ABDOMEN: No free air under the diaphragm. IMPRESSION: Bilateral airspace opacities, representing moderate pulmonary edema and/or pneumonia. Small bilateral pleural effusions. No significant interval change from prior exam. Signed by: Dr. Julio C Zuleta MD on 10/09/2018 6:28 AM
[2018-10-09] MEDS: IPRATROPIUM BROMIDE 0.02% 2.5 ML NEB NEB SCH ×2 (07:05→13:00)
[2018-10-09] MEDS: INSULIN LISPRO 100 UNIT/1 ML 3ML VIAL SQ SCH ×2 (07:30→10:26)
[2018-10-09] MEDS: SODIUM BICARBONATE 8.4% SYRING 150 ML in DEXTROSE 5% 1,000 ML IV SCH (07:37)
--- NOTE | 2018-10-09 07:40 | NUR ---
ASSESSMENT: Spiritual Distress Pt's overwhelmed by pt's illness. Pt's , daughter and son-in-law at bedside. Pt's expressing emotions thru words and tears. Pt's daughter states pt recently "said he wants to live" but "we don't want him to suffer." Pt's states their anniversary will be later this month. Pt's states she believes in prayer. Intervention: Provided empathic listening. Facilitated conversation about end-of-life. Provided prayer. Provided business card and information on how to reach oracle erp developer, if needed. Outcome: Pt's family expressed appreciation for visit. Will follow as able. ISABELA HERNANDES Endband Cutter Hand Spiritual Care Department O: [phone] Pager: [phone] ([phone] number calling from)
[2018-10-09 08:01] LABS: BAND NEUTROPHILS % (MANUAL) 13 %; LYMPHOCYTES % (MANUAL) 6 % (19-48); MONOCYTES % (MANUAL) 7 % (3.4-9.0); NEUTROPHILS % (MANUAL) 74 % (40-74); NUCLEATED RED BLOOD CELLS 8
[2018-10-09 08:03] LABS: PLATELET ESTIMATE ADEQUATE; PLATELET MORPHOLOGY COMMENT FEW LARGE; RBC MORPHOLOGY COMMENT NORMAL
[2018-10-09] MEDS ORDERED: CEFEPIME 1GM/NS 0.9% 50 ML 50 ML IV SCH (10:00)
--- NOTE | 2018-10-09 11:20 | NUR ---
Patient's family would like to change code status to DNR with comfort care. However would like ventilator to remain on. Dr. Davis's office called x3, with no response. Still awaiting page back.
--- NOTE | 2018-10-09 11:24 | Progress Note ---
DATE: 10/09/2018 Cardiology Progress Note SUBJECTIVE: The patient remains critically ill. Family changing code status to DNR today. OBJECTIVE: VITAL SIGNS: Temperature afebrile, pulse 83, respiratory rate 33, blood pressure 116/77 on 3 vasopressors. Remains on mechanical ventilation. GENERAL: Middle-aged man, intubated and sedated. CARDIOVASCULAR: Regular rate and rhythm. No murmurs, rubs, or gallops. LUNGS: Coarse breath sounds due to mechanical ventilation. ABDOMEN: Distended, soft. NEURO AND PSYCH: The patient is intubated and sedated. INPATIENT MEDICATIONS: Reviewed. LABORATORY DATA: Reviewed. White count is 56 today. Liver function tests are deteriorating. AST is more than 10,000, ALT more than 6000. IMAGING DATA: Reviewed. Chest x-ray shows bilateral airspace opacities. TELEMETRY DATA: Review shows normal sinus rhythm. ASSESSMENT: 1. Sinus tachycardia. 2. Acute anemia. 3. Multiorgan system failure. 4. Chronic respiratory failure. Trach in place. 5. Multiple sclerosis. 6. Hypotension requiring multiple vasopressors. 7. Shock liver. 8. Severe sepsis. RECOMMENDATIONS: Echocardiogram showed depressed EF, likely due to acidemia and severe sepsis. Continue current supportive care. Family is in the process of discussing goals of care. Today, the patient was made DNR/DNI and we will possibly make comfort care going forward. Overall, prognosis is very poor. We will continue to follow. MD CHANDLER Napier/GEO /[id number]
[2018-10-09] MEDS ORDERED: MIDAZOLAM HCL 2 MG/2 ML VIAL IV PRN (12:00)
[2018-10-09] MEDS: MORPHINE SULFATE INJ 4 MG/ML INJ 1ML IV PRN ×2 (12:00→12:59)
--- NOTE | 2018-10-09 12:10 | NUR ---
ASSESSMENT: Spiritual distress Pt's and daughter experiencing anticipatory grief. Pt's , daughter, son-in-law's father, and chronometer assembler (Papo) at bedside. Pt's family expressing emotions thru words and tears. Intervention: Provided calming presence and compassionate touch. Provided prayer and information concerning steam fitter supervisor maintenance's availability. Outcome: Will continue to follow. ISABELA HERNANDES Environmental Engineer Spiritual Care Department O: [phone] Pager: [phone] ([phone] number calling from)
--- NOTE | 2018-10-09 16:21 | NUR ---
1130- Patient's would like to withdraw care (except for ventilator support) and make patient DNR. Dr. Davis informed of family wishes. Dr. Mantilla made aware of families wishes as well and ordered meds for comfort. 1202- Withdrew care and vasopressors (except for ventilator support). 1240- Patient running asystole on monitor. Unable to obtain HR or arterial BP. Dr. Davis's office paged, awaiting for response. On second attempt Dr. Davis informed and orders given to contact ER physician to pronounce time of . 1514- Dr. Davis at bedside and pronounced time of .
--- NOTE | 2018-10-09 16:24 | NUR ---
[facility] contacted to receive patient per family's request.
--- NOTE | 2018-10-09 16:25 | NUR ---
All doctors on the case made aware of patients .
--- NOTE | 2018-10-09 17:45 | NUR ---
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
[2018-10-10] MEDS ORDERED: CEFEPIME HCL 1 GM VIAL IV SCH (09:00)
--- NOTE | 2018-11-06 19:45 | Discharge Summary ---
The patient expires on 10/09/2018. CHIEF COMPLAINT: Hypotension. FINAL DIAGNOSES: 1. Respiratory failure. 2. Muscular dystrophy. 3. Acute kidney injury. 4. Sepsis. 5. Hemorrhagic shock. 6. Leukocytosis. 7. Acute blood loss anemia. HOSPITAL COURSE: A 52-year-old male, who suffers from multiple sclerosis, chronic vent, has been under care [facility]. At that location, he somewhat became hypotensive. Also found to have a very low blood count with a hemoglobin of 3.5. Also noted that he has been having some black stools for some time. Also he has been found to have aspiration pneumonia. The patient is being typed and cross-matched for packed RBCs, scheduled to receive 6 units of packed RBCs. We will be requesting a GI followup. Also, we will be requesting a Pulmonary followup due to his vent requirements, and Cardiology due to issues of tachycardia. He will be admitted to ICU. With admission, the patient was undergoing Pulmonary consultation with Dr. Mantilla due to issues of pneumonia, requirements for ICU management as well as continued care for tracheostomy. With his review, his impression is pneumonia, aspiration likely. A bronchoscopy was performed. Mucus plug was noted to suction from the right lower lobe. Continue current antibiotics. Hemorrhagic shock versus septic shock, possibly a combination. Multiple scleroses versus muscular dystrophy. Cardiology follow with concern for tachycardia, was addressed by Dr. James. With his review, his impression was sinus tachycardia, acute anemia requiring transfusion, chronic respiratory failure, multiple sclerosis, hypotension requiring vasopressors with electrolyte imbalance and hypokalemia, sepsis. Sinus tachycardia, likely secondary to anemia and also sepsis. Continue current care. Infectious Disease followup was with Dr. Carmichael regarding issues of septic shock. With his review, impression was made of sepsis, septic shock. We were concerned that the source is abdomen. Recommended to add Flagyl to the antibiotic profile. Hold the feeding tube with G-tube to gravity. Continue for the lab watch, will be needing a CT abdomen and pelvis as well as CT of chest. The patient is extremely ill at the current time. Prognosis is extremely poor. Further consults, Dr. Ayala regarding evaluation for possible Bernabe catheter malfunction. Following his review, his assessment was severe leukocytosis, anemia, hyponatremia, acute renal failure, hypocalcemia, hyperkalemia, possible urinary tract infection according to urinalysis. Sepsis present on admission. Bernabe catheter in situ. We will be irrigating the Bernabe. We will be requesting a bedside cystogram. Followup consult with Dr. Mcintyre, Neurology. 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 Recommendations have been prednisone 0.75 mg/kg per day to support strength/respiratory status. Currently receiving hydrocortisone 100 mg IV every 8 hours. Again, there is no evidence of higher doses of steroids would give additional benefit. Recommended to avoid sedated, hypnotic, and pain medications, as these will alter the patient's sensorium. She states that status is currently healed. Prognosis is very poor and she feels the patient is does not fully appreciate the gravity of the situation. Followup consult was Nephrology, Dr. Lopez with findings of acute kidney injury, hyperkalemia, and severe metabolic acidosis. Further evaluation and assessment were made of acute kidney injury secondary to septic shock, acute tubular necrosis, hemodynamically unstable, given the conventional dialysis at this point. Severe lactic acidosis. Recommend, the patient being started on a bicarb drip. With significant problems of the patient, the continues to want everything that could be done for him. Agrees that the patient's prognosis is very poor. PROCEDURES: 1. Arterial line insertion, Dr. Mantilla. 2. Bronchoscopy with BAL, states that the left lung has two small nodules. Unable to do the biopsy because of the patient's hypoxia. Right lung has no endobronchial lesion. Mucus plug was suctioned in the right lower lobe. There were no complications with the procedure. The patient tolerated the procedure well. The patient was remaining in the ER until a bed was able to be placed. Laboratory studies were being monitored closely. The patient was put on respiratory treatments, started on Zosyn. Daily medications were continuing, also receiving vancomycin. He was now placed in ICU, started IV n.p.o. status, was under Pulmonary care of Dr. Mantilla. The patient has been showing elevated white count, hyperkalemia, acute kidney injury findings. He is also being seen by GI regarding the anemia and he did have history of constipation. He has had issues pneumonia over the last several days prior to admission. He has noted documents of anemia and has required transfusions in the past, and following Dr. Anton Davis's evaluation. His impression is anemia, profound. We will be checking anemia panel, set up to receive 6 units of packed RBCs, will be checking for occult blood. Recommendations for EGD and possible colonoscopy when the patient is stabilized. NG tube is to gravity. His hemoglobin post-transfusion was stable. His vent management was continuing with Dr. Mantilla. White cell count was still running elevated, still was having issues with hyperkalemia. He was developing evidence of shock liver. His liver enzymes were becoming elevated. Also running elevated ammonia levels. We will begin Xifaxan, per Dr. Walton today. Continued to be nutritional PEG tube dependent. The patient was continued to be nonresponsive, even on vent he was labor breathing. Condition continued to be extremely grave. On 10/09/2018, as I was making rounds, the patient was found to have no spontaneous breathing, no palpable pulses. Pupils were dilated and nonreactive. The patient was pronounced by me at 315 hours in the afternoon. IMAGING DATA: Chest x-ray finding shows low lung volumes, patchy right lung airspace opacities, likely aspiration pneumonia in the proper clinical setting. Likely small bilateral pleural effusions. Recommend continuing followup with chest x-rays for evaluation of resolution. Followup chest x-ray in comparison to the previous studies reveals bilateral airspace opacities representing moderate pulmonary edema and/or pneumonia, small bilateral pleural effusions, no significant interval change from previous exams. Abdomen x-ray shows moderate amount of retained oral contrast throughout the colon and the rectum. Bernabe catheter overlying the lower pelvis at middle. Cultures on the patient, sputum reveals MRSA. Blood cultures were negative. Urine studies were negative. LABORATORY STUDIES: CBC showing initial white cell count of 31,000, H and H was extremely low at 3.4 to 11.9. Platelets were 352,000, was set up to receive 6 units of packed RBCs, was receiving units of blood as they became available. Followup CBC shows an upward climb of the white cell count. On 10/09/2018, white cell count was 56,700, H and H post transfusion is high at 13.6 and 40.8, and platelets remained stable. Additional studies were showing C diff studies to be negative. Stool for occult blood was positive. Urine study shows a cloudy clarity, 2+ protein, many bacteria. Chemistries; initial panel electrolytes stable. Kidney functions, BUN of 53, creatinine 0.64, glucose 143. Anemia panel was showing low iron of 8 and TIBC low at 256, percent saturation low at 3. Followup study shows a lactic acid elevated at 63.6. Followup potassium now being elevated at 6.4. With shock liver developing, it was noted that the total bilirubin was 1.4. AST was at 4202, ALT 4113, and alkaline phosphatase 158. Potassium is now down to 5.4, BUN is 60, creatinine 1.53, glucose 353. Ammonia level elevated at 273. Final ammonia level 433, final glucose 119. Final total bilirubin 1.8. AST was 10,370, ALT 6309, alkaline phosphatase 253. Sodium has fallen to 129, potassium is stable. BUN is now 61, creatinine 2.11, final glucose 232. Unfortunately, the patient succumbed to his illness, pronounced by myself. Dictated by AMRIT Meyers Hair Davis MD CC/MODL /[id number]
== END 2018-10-09 17:48 | disposition expired | DRG 853 ==
LOC: ER 14:32 → ERHOLD 18:04 → ICU 20:15
PROC: 02HV33Z Insertion of Infusion Device into Superior Vena Cava, Percutaneous Approach (ICD-10-PCS; principal; 2018-10-06)
PROC: 0B9M8ZX Drainage of Bilateral Lungs, Via Natural or Artificial Opening Endoscopic, Diagnostic (ICD-10-PCS; 2018-10-06)
PROC: 30233N1 Transfusion of Nonautologous Red Blood Cells into Peripheral Vein, Percutaneous Approach (ICD-10-PCS; 2018-10-06)
PROC: 0BC68ZZ Extirpation of Matter from Right Lower Lobe Bronchus, Via Natural or Artificial Opening Endoscopic (ICD-10-PCS; 2018-10-06)
PROC: 04HY32Z Insertion of Monitoring Device into Lower Artery, Percutaneous Approach (ICD-10-PCS; 2018-10-06)
PROC: 5A1945Z Respiratory Ventilation, 24-96 Consecutive Hours (ICD-10-PCS; 2018-10-06)
PROC: BT00ZZZ Plain Radiography of Bladder (ICD-10-PCS; 2018-10-08)
DX: A41.9 Sepsis, unspecified organism (principal); J69.0 Pneumonitis due to inhalation of food and vomit; J15.9 Unspecified bacterial pneumonia; J96.21 Acute and chronic respiratory failure with hypoxia; R65.21 Severe sepsis with septic shock; K72.00 Acute and subacute hepatic failure without coma; N17.0 Acute kidney failure with tubular necrosis; E11.10 Type 2 diabetes mellitus with ketoacidosis without coma; K92.1 Melena; D62 Acute posthemorrhagic anemia; Z99.11 Dependence on respirator [ventilator] status; T17.590A Other foreign object in bronchus causing asphyxiation, initial encounter; E87.2 Acidosis; E87.1 Hypo-osmolality and hyponatremia; N39.0 Urinary tract infection, site not specified; G71.01 Duchenne or Becker muscular dystrophy; Z99.81 Dependence on supplemental oxygen; Z93.0 Tracheostomy status; Z88.6 Allergy status to analgesic agent; Z88.5 Allergy status to narcotic agent; Z88.8 Allergy status to other drugs, medicaments and biological substances; G35 Multiple sclerosis; Z93.1 Gastrostomy status; E87.5 Hyperkalemia; E83.51 Hypocalcemia; E11.22 Type 2 diabetes mellitus with diabetic chronic kidney disease; N18.9 Chronic kidney disease, unspecified; Z66 Do not resuscitate; K21.9 Gastro-esophageal reflux disease without esophagitis; K59.00 Constipation, unspecified
CPT/HCPCS: 36415; 36555; 36600; 71045; 74018; 74019; 80048; 80053; 81001; 82140; 82150; 82270; 82550; 82553; 82607; 82728; 82746; 82805; 82948; 83036; 83540; 83605; 83690; 83735; 84134; 84439; 84443; 84466; 84484; 85025; 85379; 85610; 85730; 86850; 86900; 86920; 87040; 87070; 87086; 87186; 87205; 87493; 93005; 93306; 94002; 94003; 94640; 96360; 99285; J0171; J0692; J1160; J1250; J1720; J1817; J2270; J2370; J2543; J3010; J3370; J7030; J7050; J7070; P9016; Q9958